=== PATIENT | female | born 1945 | race Caucasian/White ===

== ENCOUNTER 2023-01-11 11:26 | Outpatient (OUT) | payer MEDICARE, SELFPAY ==
--- NOTE | 2023-01-11 11:28 | MM_ITS ---
Patient: AGUEDA DARDEN Exam Date: 01/11/2023 : 1945 Gender:F Ordering : DR Syed Hernandes D.O. Admission #: [id number] Family : Order #: [id number] CLICK HERE TO VIEW EXAM RADIOLOGY REPORT PROCEDURE: MM TOMOSYNTHESIS SCREENING BI COMPARISON: MG MAMM SCREEN 3D ALEXIA CAD, 01/05/2022. MG MAMM DIAGNOSTIC 3D ALEXIA CAD, 01/01/2021. MG MAMM ALEXIA DIAG W CAD, 12/14/2019. MG MAMM ALEXIA SCRN W CAD DIG, 11/21/2013. INDICATIONS: Screening Calculator Name NCI Breast Cancer Risk Assessment Tool 5 Year Breast Cancer Risk n/a% Lifetime Breast Cancer Risk n/a% Personal Breast Cancer Yes, Breast cancer right upper outer quad age 69 Personal Ovarian Cancer No Treatments Lumpectomy, Chemo, Radiation Family Cancers None LOCATION: [facility] BREAST COMPOSITION: Heterogeneously dense,which may obscure small masses. FINDINGS: DIAGNOSTIC CATEGORY 2--BENIGN FINDING: RIGHT BREAST: No significant suspicious finding. Stable clips and surgical changes within posterior upper-outer quadrant and right axilla. No significant change has occurred. LEFT BREAST: No significant suspicious finding. No significant change has occurred. RECOMMENDATIONS: ROUTINE MAMMOGRAM AND CLINICAL EVALUATION IN 12 MONTHS. PLEASE NOTE: A NORMAL MAMMOGRAM DOES NOT EXCLUDE THE POSSIBILITY OF BREAST CANCER. A CLINICALLY SUSPICIOUS PALPABLE LUMP SHOULD BE BIOPSIED. Dictated by: Olayinka Mortensen M.D. on 01/11/2023 at 15:34 Approved by: Olayinka Mortensen M.D. on 01/11/2023 at 15:38
== END 2023-01-11 11:27 | disposition home or self-care (01) ==
LOC: MAMMO 11:26
PROVIDERS: PCP Internal Medicine; Visit Provider Internal Medicine
DX: Z12.31 Encounter for screening mammogram for malignant neoplasm of breast (principal)
CPT/HCPCS: 77063; 77067

== ENCOUNTER 2023-11-23 11:20 | Outpatient (OUT) | payer MEDICARE, SELFPAY ==
--- NOTE | 2023-11-23 | XR_ITS ---
The [address] [address] Patient Name: AGUEDA DARDEN MRN: [id number] date: 1945 Sex: F Assigned Patient Location: Current Patient Location: Accession/Order Number: [id number] Exam Date: 11/23/2023 11:33 Report Date: 11/24/2023 07:31 At the request of: CARLYN MAGALLANES Procedure: XR foot ALEXIA min 3V EXAMINATION: XR foot ALEXIA min 3V HISTORY: BILATERAL FOOT PAIN COMPARISON: No relevant comparison available. FINDINGS: RIGHT FINDINGS: BONES: No acute fracture or dislocation. Mild enthesopathic spurring of the calcaneus at the Achilles and plantar insertions. SOFT TISSUES: Negative. No visible soft tissue swelling. OTHER: Negative. LEFT FINDINGS: BONES: No acute fracture or dislocation. Mild plantar enthesopathic spurring of the calcaneus SOFT TISSUES: Negative. No visible soft tissue swelling. OTHER: Negative. XR/XR foot ALEXIA min 3V IMPRESSION: Mild bilateral calcaneal enthesopathy Electronically authenticated by: GEOVANNY GONZALES Date: 11/24/2023 07:31
--- OUTSIDE RECORDS SUMMARY | 2023-11-23 11:28 | XMS_ITS | CCD ---
Author Organization [facility] CliniSyar Care Team Providers Care Medical Billing Coordinator Name Role Phone Warner Almonte Admitting Unavailable Gage, Warner Attending Unavailable Warner Almonte Referring Unavailable SYED LOPEZ~[id number] UNKNOWN Primary Care Unavailable Warner Almonte Admitting Unavailable Gage, Warner Attending Unavailable Gage, Warner Referring Unavailable SYED LOPEZ~[phone] UNKNOWN Primary Care Unavailable Syed Lopez Unavailable JOHN, DR STEINER Primary Care Unavailable REQUEST, DR MENDES LISTED Attending Unavaila ble REQUEST, DR MENDES LISTED Consulting Unavaila ble REQUEST, DR MENDES LISTED Admitting Unavaila ble BALL, DR STEINER Primary Care Unavailable BALL, DR STEINER Admitting Unavailable BALL, DR STEINER Attending Unavailable BALL, DR STEINER Consulting Unavailable BALL, DR STEINER Primary Care Unavailable BALL, DR STEINER Admitting Unavailable BALL, DR STEINER Attending Unavailable BALL, DR STEINER Consulting Unavailable WEST, DR GEOVANNY Nichole Consulting Unavailable Allergies Allergy Classification Reported Allergen(s) Allergy Type Date of Onset Reaction(s) Facility (1 source) Adhesive agent Drug allergy (disorder) 11-27-2016 [facility] Medications Current Medications Medication Drug Class(es) Dates Sig (Normalized) Sig (Original) amLODIPine 5 mg oral tablet (6 sources) Dihydropyridine Calcium Channel Demar Start: 06-12-2022 take 1 tablet by mouth every twenty-four hours amLODIPine Besylate 5 MG 1 tablet Orally Once a day May, Active traMADol hydrochloride 50 mg oral tablet (5 sources) Opioid Agonist Start: 07-02-2022 take 1 tablet by mouth every twenty-four hours traMADol HCl 50 MG 1 tablet as needed Orally Once a day for 30 days Jun, Active Completed/Discontinued Medications Medication Drug Class(es) Dates Sig (Normalized) Sig (Original) azithromycin 250 mg oral tablet (3 sources) Macrolide Antimicrobial Start: 08-17-2022 Azithromycin 250 MG as directed Orally daily for 5 days Aug, Not-Taking codeine phosphate 2 mg/ml / guaiFENesin 20 mg/ml oral solution (6 sources) Opioid Agonist Start: 06-12-2022 take 10 mL by mouth every six hours as needed for cough guaiFENesin-Codein e 100-10 MG/5ML 10 mL as needed Orally every 6 hours as needed for cough for 7 days May, Not-Taking doxycycline hyclate 100 mg oral capsule (6 sources) Tetracycline-class Drug Start: 06-12-2022 take 1 capsule by mouth twice daily Doxycycline Hyclate 100 MG 1 capsule Orally twice daily for 7 days May, Not-Taking Problems Active Problems Problem Classification Problem Date Documented Da te Episodic/Chronic Acute bronchitis (10 sources) Acute infective bronchitis; Translations: [Acute bronchitis due to other specified organisms] Onset: 03-02-2014 Episodic Cancer of breast (6 sources) Malignant neoplasm of unspecified site of unspecified female breast; Translations: [Malignant neoplasm of upper-outer quadrant of right female breast] Onset: 03-04-2015 10-19-2023 Chronic Cancer of breast (7 sources) History of malignant neoplasm of breast; Translations: [Personal history of malignant neoplasm of breast] Onset: 01-07-2022 Episodic Diabetes mellitus with complications (3 sources) Type 2 diabetes mellitus; Translations: [Type 2 diabetes mellitus with hyperglycemia] Chronic Diabetes mellitus without complication (6 sources) Impaired fasting glucose; Translations: [Other abnormal glucose] Onset: 12-07-2014 10-19-2023 Episodic Disorders of lipid metabolism (6 sources) Hyperlipidemia; Translations: [Hyperlipidemia, unspecified] Onset: 11-27-2014 10-19-2023 Chronic Essential hypertension (17 sources) Essential hypertension; Translations: [Essential (primary) hypertension] Onset: 07-08-2022 Chronic Malaise and fatigue (2 sources) Other fatigue; Translations: [OTHER FATIGUE] Onset: 07-12-2022 Episodic Menopausal disorders (2 sources) Menopausal and female climacteric states; Translations: [Menopause present] Onset: 11-09-2013 Chronic Other hereditary and degenerative nervous system conditions (1 source) Essential tremor; Translations: [Essential tremor] Chronic Other hereditary and degenerative nervous system conditions (2 sources) Essential tremor; Translations: [Essential tremor] 10-21-2023 Chronic Other injuries and conditions due to external causes (1 source) History of falling; Translations: [History of falling] Episodic Other injuries and conditions due to external causes (1 source) History of fall; Translations: [History of falling] Episodic Other nutritional; endocrine; and metabolic disorders (7 sources) Body mass index 30+ - obesity; Translations: [Obesity, unspecified] Chronic Other nutritional; endocrine; and metabolic disorders (2 sources) Obesity, unspecified; Translations: [Obesity, unspecified] Chronic Other nutritional; endocrine; and metabolic disorders (2 sources) Simple obesity ; Translations: [Other obesity due to excess calories] Onset: 08-27-2015 Chronic Other nutritional; endocrine; and metabolic disorders (1 source) Morbid (severe) obesity due to excess calories; Translations: [Morbid (severe) obesity due to excess calories] Onset: 05-28-2017 Chronic Other nutritional; endocrine; and metabolic disorders (1 source) Other obesity due to excess calories Chronic Other nutritional; endocrine; and metabolic disorders (1 source) Body mass index (BMI) 31.0-31.9, adult Chronic Other nutritional; endocrine; and metabolic disorders (1 source) Obesity; Translations: [Obesity, unspecified] Chronic Other nutritional; endocrine; and metabolic disorders (1 source) Morbid obesity; Translations: [Morbid (severe) obesity due to excess calories] Onset: 05-28-2017 Chronic Other skin disorders (5 sources) Papule of skin; Translations: [Other skin changes] Episodic Other skin disorders (1 source) Other skin changes Episodic Other upper respiratory disease (2 sources) Allergic rhinitis; Translations: [Allergic rhinitis, unspecified] Onset: 08-08-2013 Chronic Other upper respiratory infections (6 sources) Acute sinusitis, unspecified; Translations: [Acute maxillary sinusitis] Onset: 03-04-2015 Episodic Spondylosis; intervertebral disc disorders; other back problems (7 sources) Lumbar spondylosis; Translations: [Spondylosis without myelopathy or radiculopathy, lumbar region] Chronic Sprains and strains (2 sources) Strain of unspecified muscle(s) and tendon(s) at lower leg level, right leg, initial encounter; Translations: [Strain of muscle and/or tendon of lower leg] Episodic Urinary tract infections (2 sources) Urinary tract infectious disease; Translations: [Urinary tract infection, site not specified] Episodic Past or Other Problems Problem Classification Problem Date Documented Da te Episodic/Chronic Gastrointestinal hemorrhage (2 sources) Melena; Translations: [Melena] Onset: 01-16-2016 Episodic Genitourinary symptoms and ill-defined conditions (2 sources) Dysuria; Translations: [Dysuria] Onset: 02-20-2014 Episodic Other circulatory disease (2 sources) Elevated blood-pressure reading without diagnosis of hypertension; Translations: [Elevated blood-pressure reading, without diagnosis of hypertension] Onset: 03-02-2014 Episodic Other connective tissue disease (2 sources) Ganglion cyst; Translations: [Ganglion, unspecified site] Onset: 2013 Episodic Other gastrointestinal disorders (2 sources) Constipation; Translations: [Constipation, unspecified] Onset: 01-15-2016 Episodic Other lower respiratory disease (2 sources) Cough; Translations: [Cough, unspecified] Onset: 08-08-2013 Episodic Other non-traumatic joint disorders (2 sources) Arthralgia of the lower leg; Translations: [Pain in left knee] Onset: 2013 Episodic Other screening for suspected conditions (not mental disorders or infectious disease) (8 sources) Encounter for screening mammogram for malignant neoplasm of breast; Translations: [Encounter for screening for malignant neoplasm of colon] Onset: 11-28-2014 Episodic Spondylosis; intervertebral disc disorders; other back problems (2 sources) Dorsalgia, unspecified; Translations: [Backache] Onset: 07-16-2014 Episodic Viral infection (2 sources) COVID-19; Translations: [Disease caused by 2019-nCoV] Resolved: 11-05-2020 Results Test Name Value Interpretation Reference Range Facility GLYCOHEMOGLOBIN A1Con 2022 ADA RECOMMENDATION SEE BELOW Normal [facility] Comment on above: Result Comment: ADA RECOMMENDED LIMIT 4.0 - 6.0 ADA THERAPEUTIC TARGET < 7.0 ACTION SUGGESTED > 7.0 Performed By: #### D ATA1C #### [facility] [address] [place] [address] Dr. Joshua Arshad Glucose [Mass/Vol] 151 mg/dL Normal [facility] Comment on above: Performed By: #### D ATA1C #### [facility] [address] [address] [address] Joshua Arshad HbA1c (Bld) [Mass fraction] 6.9 % Critically high 4.5-6.2 [facility] Comment on above: Performed By: #### D ATA1C #### [facility] [address] [place] [address] Dr. Joshua Arshad CBC AUTO DIFFon 07-08-2022 BASO # 0.0 103/ul Normal 0.0-0.1 [facility] Comment on above: Performed By: #### C BC #### [facility] [address] [place] [address] Dr. Joshua Arshad Basophils/100 WBC (Bld) 0.6 % Normal 0.2-2.0 [facility] Comment on above: Performed By: #### C BC #### [facility] [address] [place] [address] Dr. Joshua Arshad EO # 0.1 103/ul Normal 0.0-0.7 [facility] Comment on above: Performed By: #### C BC #### [facility] [address] [place] [address] Dr. Joshua Arshad Eosinophils/100 WBC (Bld) 2.3 % Normal 0.9-7.0 [facility] Comment on above: Performed By: #### C BC #### [facility] [address] [place] [address] Dr. Joshua Arshad Erythrocyte distribution width (RBC) [Ratio] 12.8 % Normal 11.0-15.0 [facility] Comment on above: Performed By: #### C BC #### [facility] [address] [place] [address] Dr. Joshua Arshad Hematocrit (Bld) [Volume fraction] 43.3 % Normal 36.0-48.0 [facility] Comment on above: Performed By: #### C BC #### [facility] [address] [place] [address] Dr. Joshua Arshad Hemoglobin (Bld) [Mass/Vol] 14.0 g/dL Normal 12.0-16.0 [facility] Comment on above: Performed By: #### C BC #### [facility] [address] [place] [address] Dr. Joshua Arshad IG # 0.01 10e3/ul Normal 0.00-0.03 [facility] Comment on above: Performed By: #### C BC #### [facility] [address] [place] [address] Dr. Joshua Arshad IG % 0.2 % Normal 0.0-0.5 [facility] Comment on above: Performed By: #### C BC #### [facility] [address] [place] [address] Dr. Joshua Arshad LYMPH # 1.6 103/ul Normal 1.2-3.8 [facility] Comment on above: Performed By: #### C BC #### [facility] [address] [place] [address] Dr. Joshua Arshad Lymphocytes/100 WBC (Bld) 34.2 % Normal 20.5-60.0 [facility] Comment on above: Performed By: #### C BC #### [facility] [address] [place] [address] Dr. Joshua Arshad MANUAL DIFF REQ NO Normal [facility] Comment on above: Performed By: #### C BC #### [facility] [address] [place] [address] Dr. Joshua Arshad MCH (RBC) [Entitic mass] 29.5 pg Normal 26.7-34.0 [facility] Comment on above: Performed By: #### C BC #### [facility] [address] [place] [address] Dr. Joshua Arshad MCHC (RBC) [Mass/Vol] 32.3 g/dL Normal 29.9-35.2 [facility] Comment on above: Performed By: #### C BC #### [facility] [address] [place] [address] Dr. Joshua Arshad MCV (RBC) [Entitic vol] 91.4 fL Normal 81.0-99.0 [facility] Comment on above: Performed By: #### C BC #### [facility] [address] [place] [address] Dr. Joshua Arshad MONO # 0.3 103/ul Normal 0.3-0.8 [facility] Comment on above: Performed By: #### C BC #### [facility] [address] [place] [address] Dr. Joshua Arshad Monocytes/100 WBC (Bld) 6.3 % Normal 1.7-12.0 [facility] Comment on above: Performed By: #### C BC #### [facility] [address] [place] [address] Dr. Joshua Arshad NEUT # 2.7 103/ul Normal 1.4-6.5 [facility] Comment on above: Performed By: #### C BC #### [facility] [address] [place] [address] Dr. Joshua Arshad Neutrophils/100 WBC (Bld) 56.4 % Normal 43.0-75.0 [facility] Comment on above: Performed By: #### C BC #### [facility] [address] [place] [address] Dr. Joshua Arshad Platelet mean volume (Bld) [Entitic vol] 10.8 fL Normal 9.5-13.5 [facility] Comment on above: Performed By: #### C BC #### [facility] [address] [place] [address] Dr. Joshua Arshad PLT 209 103/ul Normal 150-450 [facility] Comment on above: Performed By: #### C BC #### [facility] [address] [place] [address] Dr. Joshua Arshad RBC 4.74 106/ul Normal 4.20-5.40 [facility] Comment on above: Performed By: #### C BC #### [facility] [address] [place] [address] Dr. Joshua Arshad WBC 4.7 103/ul Normal 4.0-11.0 [facility] Comment on above: Performed By: #### C BC #### [facility] [address] [place] [address] Dr. Joshua Arshad PROF CHEM 8 (BAS METB)on Anion gap [Moles/Vol] 14.0 mmol/L Normal [facility] Comment on above: Performed By: #### T SH, BMP #### [facility] [address] [place] [address] Dr. Joshua Arshad Calcium [Mass/Vol] 9.5 mg/dL Normal 8.5-10.1 [facility] Comment on above: Performed By: #### T SH, BMP #### [facility] [address] [place] [address] Dr. Joshua Arshad Chloride [Moles/Vol] 103 mmol/L Normal 98-107 [facility] Comment on above: Performed By: #### T SH, BMP #### [facility] [address] [place] [address] Dr. Joshua Arshad CO2 [Moles/Vol] 27.1 mmol/L Normal 21.0-32.0 [facility] Comment on above: Performed By: #### T SH, BMP #### [facility] [address] [place] [address] Dr. Joshua Arshad Creatinine [Mass/Vol] 0.75 mg/dL Normal 0.55-1.02 [facility] Comment on above: Performed By: #### T SH, BMP #### [facility] [address] [place] [address] Dr. Joshua Arshad EGFR-AF GREEK >60 Normal >=60 [facility] Comment on above: Performed By: #### T SH, BMP #### [facility] [address] [place] [address] Dr. Joshua Arshad EGFR-NON AF GREEK >60 Normal >=60 [facility] Comment on above: Performed By: #### T SH, BMP #### [facility] [address] [place] [address] Dr. Joshua Arshad Glucose [Mass/Vol] 134 mg/dL Critically high 74-106 [facility] Comment on above: Performed By: #### T SH, BMP #### [facility] [address] [place] [address] Dr. Joshua Arshad Potassium [Moles/Vol] 4.1 mmol/L Normal 3.5-5.1 [facility] Comment on above: Performed By: #### T SH, BMP #### [facility] [address] [address] [address] Joshua Arshad Sodium [Moles/Vol] 140 mmol/L Normal 136-145 [facility] Comment on above: Performed By: #### T SH, BMP #### [facility] [address] [address] [address] Joshua Arshad Urea nitrogen [Mass/Vol] 10.0 mg/dL Normal 7.0-18.0 [facility] Comment on above: Performed By: #### T SH, BMP #### [facility] [address] [address] [address] Joshua Arshad Urea nitrogen/Creatinine [Mass ratio] 13.3 mg/mg Normal [facility] Comment on above: Performed By: #### T SH, BMP #### [facility] [address] [address] [address] Joshua Arshad TSHon 07-08-2022 TSH 1.694 uIU/mL Normal 0.358-3.740 [facility] Comment on above: Performed By: #### T SH, BMP #### [facility] [address] [place] [address] Dr. Joshua Arshad MG MAMM SCREEN 3D ALEXIA CADon 01-05-2022 MG MAMM SCREEN 3D ALEXIA CAD Patient: AGUEDA REYNA Exam Date: 01/05/2022 : 1945 Gender:F Ordering : DR SYED LOPEZ D.O. Admission #: [id number] Family : Order #: [id number] CLICK HERE TO VIEW EXAM RADIOLOGY REPORT PROCEDURE: MAMMOGRAM SCREENING 3D BILATERAL CAD COMPARISON: MG MAMM ALEXIA DIAG W CAD, 12/14/2019. MG MAMM DIAGNOSTIC 3D ALEXIA CAD, 01/01/2021. INDICATIONS: Screening mammography Calculator Name NCI Breast Cancer Risk Assessment Tool 5 Year Breast Cancer Risk n/a% Lifetime Breast Cancer Risk n/a% Personal Breast Cancer Yes, Breast cancer right upper outer quad age 69 Personal Ovarian Cancer No Treatments Lumpectomy, Chemo, Radiation Family Cancers None LOCATION: [facility] BREAST COMPOSITION: Heterogeneously dense,which may obscure small masses. FINDINGS: DIAGNOSTIC CATEGORY 2--BENIGN FINDING. NO CHANGE FROM COMPARISON. Scattered benign-appearing calcifications are present. Scattered benign-appearing lymph nodes are present. RIGHT BREAST: No significant suspicious finding. Asymmetrically small, stable. Micro clip markers in area of architectural distortion upper outer quadrant, unchanged, to a linear scar marker. Right axillary surgical clips and scar marker pleural LEFT BREAST: No significant suspicious finding. RECOMMENDATIONS: ROUTINE MAMMOGRAM AND CLINICAL EVALUATION IN 12 MONTHS. PLEASE NOTE: A NORMAL MAMMOGRAM DOES NOT EXCLUDE THE POSSIBILITY OF BREAST CANCER. A CLINICALLY SUSPICIOUS PALPABLE LUMP SHOULD BE BIOPSIED. Dictated by: Geovanny Astorga MD on 01/05/2022 at 14:29 Approved by: Geovanny Astorga MD on 01/05/2022 at 14:31 Normal [facility] Coding Summary.on 05-12-2018 Coding Summary. 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 However, the narrative phrase printed from the coding software may appear abbreviated, or result in slightly different terminology. Coded By: Barbara Delaney Date Saved: 05/12/2018 10:56 am Normal [facility] Coding Summary.on 05-06-2018 Coding Summary. CODING DATE: 05/06/2018 FINAL [facility] STATUS: Home (Routine DC) PAYOR: Medicare APC DESCRIPTION 5481 Laser Eye Procedures ADMIT DX: REASON FOR VISIT DX: H26.491 Other secondary cataract, right eye FINAL DX: PRINCIPAL: H26.491 Other secondary cataract, right eye SECONDARY: PYMT PROC APC STAT DESCRIPTION DOCTOR NAME DATE 80216 5481 T Discission of secondary Warner Almonte DO 05/03/2018 membranous cataract (opacified posterior lens capsule and/or anterior hyaloid); laser surgery (eg, YAG laser) (1 or more stages) RT Right side (used to identify procedures performed on the right side of the body) NOTE: The code number assigned matches the documented diagnosis and / or procedure in the patient's chart. However, the narrative phrase printed from the coding software may appear abbreviated, or result in slightly different terminology. Coded By: Barbara Delaney Date Saved: 05/06/2018 08:06 am Normal [facility] Vital Signs Date Time Vital Sign Value Performing Clinician Facility 10-21-2023 11:48-0400 Body height 165.1 cm [facility] 10-21-2023 11:48-0400 Body mass index (BMI) [Ratio] 31.9 kg/m2 [facility] 10-21-2023 11:48-0400 Body weight 87.08 kg [facility] 10-21-2023 11:48-0400 Diastolic blood pressure 85 mm[Hg] [facility] 10-21-2023 11:48-0400 Heart rate 61 /min [facility] 10-21-2023 11:48-0400 Respiratory rate 16 /min [facility] 10-21-2023 11:48-0400 SaO2% (BldA) [Mass fraction] 97 % [facility] 10-21-2023 11:48-0400 Systolic blood pressure 152 mm[Hg] [facility] 10-19-2022 13:30-0400 Body height 165.1 cm Syed [employer] Other [facility] [employer] Other 10-19-2022 13:30-0400 Body mass index (BMI) [Ratio] 31.21 kg/m2 Syed Ball Other [facility] [employer] Other 10-19-2022 13:30-0400 Body weight 85.1 kg Syed Ball Other [facility] [employer] Other 10-19-2022 13:30-0400 Diastolic blood pressure 88 mm[Hg] Syed Ball Other [employer] Other 10-19-2022 13:30-0400 Respiratory rate 12 /min Syed Ball Other [employer] Other 10-19-2022 13:30-0400 Systolic blood pressure 139 mm[Hg] Syed Ball Other [employer] Other 07-02-2022 10:15-0400 Body height 165.1 cm Syed Ball Other [employer] Other 07-02-2022 10:15-0400 Body mass index (BMI) [Ratio] 34.78 kg/m2 Syed Ball Other [employer] Other 07-02-2022 10:15-0400 Body weight 94.8 kg Syed Ball Other [employer] Other 07-02-2022 10:15-0400 Diastolic blood pressure 80 mm[Hg] Syed Ball Other [employer] Other 07-02-2022 10:15-0400 Respiratory rate 16 /min Syed Ball Other [employer] Other 07-02-2022 10:15-0400 Systolic blood pressure 112 mm[Hg] Syed Ball Other [employer] Other Encounters Encounter Date Encounter Type Care Provider Facility Start: 10-21-2023 End: 10-21-2023 ambulatory [facility] Work Phone: Start: 10-21-2023 End: 10-21-2023 Patient encounter procedure [facility] Work Phone: Start: 10-19-2022 End: 10-19-2022 ambulatory Syed Lopez Other [employer] Other Start: 10-19-2022 Patient encounter procedure Syed Lopez [facility] Start: 10-19-2022 Telephone encounter Syed Lopez [facility] Start: 08-17-2022 End: 08-17-2022 ambulatory Syed Lopez Other [employer] Other Start: 08-17-2022 Office outpatient vi sit 15 minutes Syed Lopez [facility] Start: 07-15-2022 End: 07-16-[address] SYED LOPEZ Facility:[facility] Start: 07-09-2022 End: 07-09-2022 ambulatory Syed Lopez Other [employer] Other Start: 07-09-2022 Telephone encounter Syed Lopez [facility] Start: 07-08-2022 End: 07-09-[address] SYED LOPEZ Facility:[facility] Start: 07-02-2022 End: 07-02-2022 ambulatory Syed Lopez Other [employer] Other Start: 07-02-2022 Office outpatient vi sit 15 minutes Syed Lopez [facility] Start: 06-12-2022 End: 06-12-2022 ambulatory Syed Lopez Other [employer] Other Start: 06-12-2022 Office outpatient vi sit 15 minutes Seyd Lopez [facility] Start: 01-05-2022 End: 01-06-[address] SYED LOPEZ Facility:[facility] Start: 11-11-2021 Adult health examination Syed Lopez Other [employer] Other Start: 05-10-2018 End: 05-10-2018 Patient encounter procedure Warner Almonte Facility:[facility] Start: 05-03-2018 End: 05-03-2018 Patient encounter procedure Warner Almonte Facility:[facility] Procedures Date Procedure Procedure Detail Performing Clinician Start: 11-02-2016 Screening for malign ant neoplasm of colon Syed Lopez Other Depression screening Patsy Lopez Other Plan of Treatment Date Care Activity Detail Author Comprehensive metabo lic 2000 panel - Serum or Plasma [facility] enter [facility] Immunizations Immunization Date Immunization Notes Care Provider Fa jg 12-02-2017 influenza virus vaccine, split virus (incl. purified surface antigen) Syed Lopez Other [facility] [employer] Other 12-02-2017 influenza virus vaccine, unspecified formulation [facility] 11-02-2016 pneumococcal conjuga te vaccine, 13 valent Syed Lopez Other [facility] 12-25-2015 influenza virus vaccine, split virus (incl. purified surface antigen) Syed Lopez Other [facility] [employer] Other 12-25-2015 influenza virus vaccine, unspecified formulation [facility] 02-11-2001 pneumococcal polysaccharide vaccine, 23 valent Syed Lopez Other [facility] Payers Date Payer Category Payer Self-pay 1959 Unknown [id number] 1945 Unknown [id number] 2.16.84 [id number] 1945 Unknown [id number] 2.16.84 [id number] 1945 Unknown [id number] 2.16.84 [id number] 1945 Unknown [id number] 2.16.84 [id number] Medicare Medicare [id number] Unknown [id number] 2.16.84 [id number] Social History Date Type Detail Facility Sex Assigned At [facility] [employer] Other Start: 1945 Sex Assigned At Female F [facility] Evaluation note 10-19-2022 Note Date & Type Note Facility 10-19-2022 Evaluation note Encounter Date Diagnosis Assessment Notes Oct, Medicare annual wellness visit, subsequent (ICD-10 - Z00.00) Personalized health advice was given to the beneficiary including a written plan for screenings discussed and provided. Advanced care planning reviewed and/or information given as requested. Additional counseling was provided here today in regards to, [ ]. The above visit was performed by [ ], under direct supervision of [ ]. Document reviewed and amended by provider signed below. Healthy diet and exercise. Reviewed age-appropriate preventive testing recommended. Oct, Type 2 diabetes mellitus with hyperglycemia, without long-term current use of insulin (ICD-10 - E11.65) This patient is following a comprehensive diabetic treatment plan. They are checking their feet daily for calluses and nonhealing ulcers. They are being seen for yearly dilated eye examinations. Goals: SBP less than 130, LDL less than 100, FBS less than 140, AC and A1C less than 7%. They are checking their BS daily, will which are reviewed at the office visit. Continue regular routine monitoring of A1C,] Microalbumin, Dilated eye exam and Foot exam Completed diabetic education Has lost weight and is following a heatlhy, low carb diet Oct, Primary hypertension (ICD-10 - I10) This patient is instructed to consume a healthy, low-fat, low-salt diet. They are also encouraged to continue exercise to achieve/maintain a normal BMI. Oct, Other obesity due to excess calories (ICD-10 - E66.09) This patient has been instructed on a low-fat, high-fiber diet. They are instructed to reduce calories, portion sizes and snacks. It is recommended that they exercise for 30 minutes, 3-5 times weekly. Goal is BMI < 30 Oct, Body mass index [BMI] 31.0-31.9, adult (ICD-10 - Z68.31) Oct, Screening mammogram for high-risk patient (ICD-10 - Z12.31) Hx of breast cancer No s/s recurrence. f/u [employer] Other Evaluation note 08-17-2022 Note Date & Type Note Facility 08-17-2022 Evaluation note Encounter Date Diagnosis Assessment Notes Aug, Acute bronchitis due to other specified organisms (ICD-10 - J20.8) Instructed to use Robitussin or Mucinex for cough, saline or Flonase NS for congestion, Tylenol for pain and fever. [employer] Other Evaluation note 07-02-2022 Note Date & Type Note Facility 07-02-2022 Evaluation note Encounter Date Diagnosis Assessment Notes Jun, Primary hypertension (ICD-10 - I10) This patient is instructed to consume a healthy, low-fat, low-salt diet. They are also encouraged to continue exercise to achieve/mainta in a normal BMI. Jun, Obesity (BMI 30-39.9) (ICD-10 - E66.9) This patient has been instructed on a low-fat, high-fiber diet. They are instructed to reduce calories, portion sizes and snacks. It is recommended that they exercise for 30 minutes, 3-5 times weekly. Jun, Papule of skin (ICD-10 - R23.8) Cryo/thaw x 3 treatment Removed due to frequent episodes of bleeding from this inflamed, irritated papule Jun, Hx of breast cancer (ICD-10 - Z85.3) Jun, Fatigue, unspecified type (ICD-10 - R53.83) Jun, Lumbar spondylosis (ICD-10 - M47.816) [employer] Other Evaluation note 06-12-2022 Note Date & Type Note Facility 06-12-2022 Evaluation note Encounter Date Diagnosis Assessment Notes May, Acute bronchitis due to other specified organisms (ICD-10 - J20.8) Instructed to use Robitussin or Mucinex for cough, saline or Flonase NS for congestion, Tylenol for pain and fever. May, Primary hypertension (ICD-10 - I10) This patient is instructed to consume a healthy, low-fat, low-salt diet. They are also encouraged to continue exercise to achieve/maintain a normal BMI. Avoid decongestants [employer] Other Evaluation note Note Date & Type Note Facility Evaluation note No Information [employer] Other Evaluation note Note Date & Type Note Facility Evaluation note Diagnosis Onset Date Breast cancer acute Hypercholesterolemia acute Hypertension acute IFG (impaired fasting glucose) acute Medicare annual wellness visit, subsequent noneactive [facility] Work Phone: History general Narrative - Reported Note Date & Type Note Facility History general Narrative - Reported Type Medical History essential tremor Medical History hyperlipidemia Medical History hypertension Medical History impaired fasting glucose Medical History malignant neoplasm of UOQ of rig ht breast Medical History obesity Surgical History colonoscopy 11/2016 Surgical History right lumpectomy w/ LN dissecti on 12/2014 [employer] Other History general Narrative - Reported Note Date & Type Note Facility History general Narrative - Reported Type Medical History essential tremor Medical History hyperlipidemia Medical History hypertension Medical History impaired fasting glucose Medical History malignant neoplasm o f UOQ of right breast Medical History obesity Surgical History colonoscopy 11/2016 Surgical History right lumpectomy w/ LN dissecti on 12/2014 Hospitalization History SEE SURGICAL HX [employer] Other Summary Purpose Family History Relationship Condition Age at Onset Recorded Date/T laura father Heart disease Unknown Diabetes mellitus Unknown Advance Directives Advance Directive Response Recorded Date/ Time Advance Directives No October 20 11:38am Chief Complaint and Reason for Visit Chief Complaint Rt foot pain Reason for Visit Breast cancer Hypercholesterolemia Hypertension IFG (impaired fasting glucose) Medicare annual wellness visit, subsequent Additional Source Comments INFORMATION SOURCE (unrecogn ized section and content) DATE CREATED AUTHOR 07/18/2018 [facility] DATE CREATED AUTHOR AUTHOR'S ORGANIZ ATION 07/16/2022 [facility] REASON FOR VISIT (unrecogniz ed section and content) Sinuses/Congestion [phone] on Chest[facility] resultsSore [phone] work needed Care Teams (unrecognized sec tion and content) Team Status: Active Member Role Status Dates Syed Lopez DO Primary Care Provider Active Team Status: Inactive Member Role Status Dates Syed Lopez DO Primary Care Provide r, Attending Provider Active Start: October 21, 2023 End: October 21, 2023 Goals (unrecognized section and content) Goals may be documented in a n alternate section FOR RECORDS PERTAINING TO PATIENTS WHO ARE OR HAVE BEEN ENROLLED IN A CHEMICAL DEPENDENCY/SUBSTANCEABUSE PROGRAM, SOME INFORMATION MAY BE OMITTED. This clinical summary was aggregated from multiple sources. Caution should be exercised in using it in the provision of clinical care. This summary normalizes information from multiple sources, and as a consequence, information in this document may materially change the coding, format and clinical context of patient data. In addition, data may be omitted in some cases. CLINICAL DECISIONS SHOULD BE BASED ON THE PRIMARY CLINICAL RECORDS. [facility] provides no warranty or guarantee of the accuracy or completeness of information in this document.
== END 2023-11-23 11:21 | disposition home or self-care (01) ==
LOC: EC 11:20
PROVIDERS: PCP Internal Medicine; Visit Provider Podiatrist Foot & Ankle Surgery
DX: M79.672 Pain in left foot (principal); M79.671 Pain in right foot; M77.32 Calcaneal spur, left foot; M77.31 Calcaneal spur, right foot
CPT/HCPCS: 73630

== ENCOUNTER 2024-01-13 11:15 | Outpatient (OUT) | payer MEDICARE, SELFPAY ==
[2024-01-13 11:44] LABS: Basophils Percent Auto 0.6 % (0.2-2.0); Eosinophils Absolute Auto 0.1 10^3/uL (0.0-0.7); Eosinophils Percent Auto 1.5 % (0.9-7.0); Hematocrit 41.7 % (36.0-48.0); Hemoglobin 13.7 g/dL (12.0-16.0); Immature Granulocytes Abs Auto 0.01 10^3/uL (0.00-0.03); Immature Granulocytes Pct Auto 0.2 % (0.0-0.5); Lymphocytes Absolute Auto 1.5 10^3/uL (1.2-3.8); Lymphocytes Percent Auto 26.7 % (20.5-60.0); Mean Corpuscular HGB Conc 32.9 g/dL (29.9-35.2); Mean Corpuscular Hemoglobin 30.5 pg (26.7-34.0); Mean Corpuscular Volume 92.9 fL (81.0-99.0); Mean Platelet Volume 10.1 fL (9.5-13.5); Monocytes Absolute Auto 0.3 10^3/uL (0.3-0.8); Monocytes Percent Auto 5.3 % (1.7-12.0); Neutrophils Absolute Auto 3.6 10^3/uL (1.4-6.5); Neutrophils Percent Auto 65.7 % (43.0-75.0); Platelet Count 259 10^3/uL (150-450); Red Blood Count 4.49 10^6/uL (4.20-5.40); Red Cell Distribution Width 12.3 % (11.0-15.0); White Blood Count 5.4 10^3/uL (4.0-11.0)
[2024-01-13 11:58] LABS: Alanine Aminotransferase 18 U/L (14-59); Albumin Level 3.4 g/dL (3.4-5.0); Alkaline Phosphatase 70 U/L (46-116); Anion Gap 11.7; Aspartate Amino Transferase 15 U/L (15-37); BUN Creatinine Ratio 17.7; Bilirubin Total 0.4 mg/dL (0.2-1.0); Calcium 8.9 mg/dL (8.5-10.1); Carbon Dioxide 29.4 mmol/L (21.0-32.0); Chloride 108 mmol/L (98-107); Cholesterol 155 mg/dL (<=200); Estimated GFR (African America >60 (>=60 mL/min/1.73m^2); Estimated GFR (Non-African Ame >60 (>=60 mL/min/1.73m^2); Globulin 3.4 g/dL; Glucose 146 mg/dL (74-106); HDL Cholesterol 76 mg/dL (40-60); Potassium 4.1 mmol/L (3.5-5.1); Sodium 145 mmol/L (136-145); Total Protein 6.8 g/dL (6.4-8.2); Triglycerides 93 mg/dL (<=150); VLDL CHOLESTEROL 18.6 mg/dL
[2024-01-13 12:10] LABS: Estimated Average Glucose 134 mg/dL; Glycohemoglobin A1C 6.3 % (4.5-6.2)
== END 2024-01-13 11:16 | disposition home or self-care (01) ==
LOC: LAB 11:16
PROVIDERS: PCP Internal Medicine; Visit Provider Internal Medicine
DX: I10 Essential (primary) hypertension (principal); E78.00 Pure hypercholesterolemia, unspecified; R73.01 Impaired fasting glucose
CPT/HCPCS: 36415; 80053; 80061; 83036; 85025

== ENCOUNTER 2024-01-13 13:26 | Outpatient (OUT) | payer MEDICARE, SELFPAY ==
--- NOTE | 2024-01-13 13:29 | MM_ITS ---
Patient Name: AGUEDA DARDEN MR#: [id number] : 1945 Exam Date: 01/13/2024 Ordering Doctor: DR Syed Hernandes D.O. RADIOLOGY REPORT PROCEDURE: MM TOMOSYNTHESIS SCREENING BI COMPARISON: MG MAMM SCREEN 3D ALEXIA CAD, 01/05/2022. MM TOMOSYNTHESIS SCREENING BI, 01/11/2023. INDICATIONS: Screening Calculator Name NCI Breast Cancer Risk Assessment Tool 5 Year Breast Cancer Risk n/a% Lifetime Breast Cancer Risk n/a% Personal Breast Cancer Yes, Breast cancer right upper outer quad age 69 Personal Ovarian Cancer No Treatments Lumpectomy, Chemo, Radiation Family Cancers None LOCATION: [facility] BREAST COMPOSITION: The breasts are heterogeneously dense,which may obscure small masses. FINDINGS: DIAGNOSTIC CATEGORY 2--BENIGN FINDING. NO CHANGE FROM COMPARISON. Scattered benign-appearing calcifications are present. Scattered benign-appearing lymph nodes are present. RIGHT BREAST: No significant suspicious finding. Asymmetrically small. Multiple surgical clips and coarse calcifications upper outer quadrant, stable. Axillary surgical clips, stable LEFT BREAST: No significant suspicious finding. RECOMMENDATIONS: ROUTINE MAMMOGRAM AND CLINICAL EVALUATION IN 12 MONTHS. PLEASE NOTE: A NORMAL MAMMOGRAM DOES NOT EXCLUDE THE POSSIBILITY OF BREAST CANCER. A CLINICALLY SUSPICIOUS PALPABLE LUMP SHOULD BE BIOPSIED. Dictated by: Jamal Astorga MD on 01/13/2024 at 15:34 Approved by: Jamal Astorga MD on 01/13/2024 at 15:35
--- OUTSIDE RECORDS SUMMARY | 2024-01-13 13:46 | XMS_ITS | CCD ---
Author Organization [facility] Care Team Providers Care [employer] Custodian Name Role Phone Warner Almonte Admitting Unavailable Warner Almonte Attending Unavailable aWrner Almonte Referring Unavailable SYED LOPEZ~[id number] UNKNOWN Primary Care Unavailable Warner Almonte Admitting Unavailable Gage, Warner Attending Unavailable Warner Almonte Referring Unavailable SYED LOPEZ~[id number] UNKNOWN Primary Care Unavailable Syed Lopez Unavailable [...] Adhesive agent Drug allergy (disorder) 11-27-2016 [facility] Medications Current Medications Medication Drug Class(es) Dates Sig (Normalized) Sig (Original) amLODIPine 5 mg oral tablet (6 sources) Dihydropyridine Calcium Channel Demar Start: 06-12-2022 take 1 tablet by mouth every twenty-four hours amLODIPine Besylate 5 MG 1 tablet Orally Once a day May, Active amoxicillin 875 mg / clavulanate 125 mg oral tablet (2 sources) Penicillin-class Antibacterial Start: 01-07-2024 take 1 tablet by mouth twice daily Amoxicillin-Pot Clavulanate Active 1 TAB PO Twice daily 01 01January 07, 2024 12:00am traMADol hydrochloride 50 mg oral tablet (5 [...] organisms] Onset: 03-02-2014 Episodic Cancer of breast (10 sources) Malignant neoplasm of unspecified site of [...] with hyperglycemia] Chronic Diabetes mellitus without complication (10 sources) Impaired fasting glucose; Translations: [Other abnormal glucose] Onset: 12-07-2014 10-19-2023 Episodic Disorders of lipid metabolism (10 sources) Hyperlipidemia; Translations: [Hyperlipidemia, unspecified] Onset: 11-27-2014 10-19-2023 Chronic Essential hypertension (20 sources) Essential hypertension; Translations: [Essential (primary) hypertension] Onset: 07-08-2022 Chronic Malaise and fatigue (2 sources) Other fatigue; Translations: [OTHER FATIGUE] Onset: 07-12-2022 Episodic Menopausal disorders (2 sources) Menopausal and female climacteric states; Translations: [Menopause present] Onset: 11-09-2013 Chronic Other hereditary and degenerative nervous system conditions (1 source) Essential tremor; Translations: [Essential tremor] Chronic Other hereditary and degenerative nervous system conditions (4 sources) Essential tremor; Translations: [Essential tremor] 10-21-2023 [...] (1 source) Other skin changes Episodic Other skin disorders (2 sources) Nodule of subcutaneous tissue of left foot; Translations: [Localized swelling, mass and lump, left lower limb] 10-21-2023 Episodic Other skin disorders (2 sources) Localized swelling, mass and lump, left lower limb; Translations: [Localized superficial swelling, mass, or lump] 10-21-2023 Episodic Other upper respiratory disease (2 sources) Allergic rhinitis; Translations: [Allergic rhinitis, unspecified] Onset: 08-08-2013 Chronic Other upper respiratory infections (2 sources) Maxillary sinusitis; Translations: [Chronic maxillary sinusitis] 01-09-2024 Chronic Other upper respiratory infections (6 sources) Acute sinusitis, unspecified; Translations: [Acute maxillary sinusitis] Onset: 03-04-2015 Episodic Spondylosis; intervertebral disc disorders; other back problems (9 sources) Lumbar spondylosis; Translations: [Spondylosis without myelopathy or radiculopathy, lumbar region] Chronic Sprains and strains (2 sources) Strain of unspecified muscle(s) and tendon(s) at lower leg level, right leg, initial encounter; Translations: [Strain of muscle and/or tendon of lower leg] Episodic Urinary tract infections (2 sources) Urinary tract infectious disease; Translations: [Urinary tract infection, site not specified] Episodic Viral infection (4 sources) Verruca plantaris; Translations: [Plantar wart] 10-21-2023 Episodic Past or Other Problems Problem Classification [...] (2 sources) COVID-19; Translations: [Disease caused by nCoV] Resolved: 11-05-2020 Results Test Name Value Interpretation Reference Range Facility GLYCOHEMOGLOBIN A1Con 2022 ADA RECOMMENDATION SEE BELOW Normal [facility] Comment on above: Result Comment: ADA RECOMMENDED LIMIT 4.0 - 6.0 ADA THERAPEUTIC TARGET < 7.0 ACTION SUGGESTED > 7.0 Performed By: #### D ATA1C #### [facility] [address] [place] [address] Dr. Joshua Arshad Glucose [Mass/Vol] 151 mg/dL Normal [facility] Comment on above: Performed By: #### D ATA1C #### [facility] [address] [place] [address] Dr. Joshua Arshad HbA1c (Bld) [Mass fraction] 6.9 % Critically high 4.5-6.2 [facility] Comment on above: Performed By: #### D ATA1C #### [facility] [address] [place] [address] Dr. Joshua Arshad CBC AUTO DIFFon 07-08-2022 BASO # 0.0 103/ul Normal 0.0-0.1 [facility] Comment on above: Performed By: #### C BC #### [facility] [address] [place] [address] Dr. Joshua Arshad Basophils/100 WBC (Bld) 0.6 % Normal 0.2-2.0 [facility] Comment on above: Performed By: #### C BC #### [facility] [address] [place] [address] Dr. Joshua Arshad EO # 0.1 103/ul Normal 0.0-0.7 [facility] Comment on above: Performed By: #### C BC #### [facility] [address] [place] [address] Dr. Joshua Arshad Eosinophils/100 WBC (Bld) 2.3 % Normal 0.9-7.0 [facility] Comment on above: Performed By: #### C BC #### [facility] [address] [place] [address] Dr. Joshua Arshad Erythrocyte distribution width (RBC) [Ratio] 12.8 % Normal 11.0-15.0 [facility] Comment on above: Performed By: #### C BC #### [facility] [address] [place] [address] Dr. Joshua Arshad Hematocrit (Bld) [Volume fraction] 43.3 % Normal 36.0-48.0 [facility] Comment on above: Performed By: #### C BC #### [facility] [address] [place] [address] Dr. Joshua Arshad Hemoglobin (Bld) [Mass/Vol] 14.0 g/dL Normal 12.0-16.0 [facility] Comment on above: Performed By: #### C BC #### [facility] [address] [place] [address] Dr. Joshua Arshad IG # 0.01 10e3/ul Normal 0.00-0.03 [facility] Comment on above: Performed By: #### C BC #### [facility] [address] [place] [address] Dr. Joshua Arshad IG % 0.2 % Normal 0.0-0.5 [facility] Comment on above: Performed By: #### C BC #### [facility] [address] [place] [address] Dr. Joshua Arshad LYMPH # 1.6 103/ul Normal 1.2-3.8 [facility] Comment on above: Performed By: #### C BC #### [facility] [address] [place] [address] Dr. Joshua Arshad Lymphocytes/100 WBC (Bld) 34.2 % Normal 20.5-60.0 [facility] Comment on above: Performed By: #### C BC #### [facility] [address] [place] [address] Dr. Joshua Arshad MANUAL DIFF REQ NO Normal [facility] Comment on above: Performed By: #### C BC #### [facility] [address] [place] [address] Dr. Joshua Arshad MCH (RBC) [Entitic mass] 29.5 pg Normal 26.7-34.0 [facility] Comment on above: Performed By: #### C BC #### [facility] [address] [place] [address] Dr. Joshua Arshad MCHC (RBC) [Mass/Vol] 32.3 g/dL Normal 29.9-35.2 [facility] Comment on above: Performed By: #### C BC #### [facility] [address] [place] [address] Dr. Joshua Arshad MCV (RBC) [Entitic vol] 91.4 fL Normal 81.0-99.0 [facility] Comment on above: Performed By: #### C BC #### [facility] [address] [place] [address] Dr. Joshua Arshad MONO # 0.3 103/ul Normal 0.3-0.8 [facility] Comment on above: Performed By: #### C BC #### [facility] [address] [place] [address] Dr. Joshua Arshda Monocytes/100 WBC (Bld) 6.3 % Normal 1.7-12.0 [facility] Comment on above: Performed By: #### C BC #### [facility] [address] [place] [address] Dr. Joshua Arshad NEUT # 2.7 103/ul Normal 1.4-6.5 [facility] Comment on above: Performed By: #### C BC #### [facility] [address] [place] [address] Dr. Joshua Arshad Neutrophils/100 WBC (Bld) 56.4 % Normal 43.0-75.0 [facility] Comment on above: Performed By: #### C BC #### [facility] [address] [place] [address] Dr. Joshua Arshad Platelet mean volume (Bld) [Entitic vol] 10.8 fL Normal 9.5-13.5 [facility] Comment on above: Performed By: #### C BC #### [facility] [address] [place] [address] Dr. Joshua Arshad PLT 209 103/ul Normal 150-450 [facility] Comment on above: Performed By: #### C BC #### [facility] [address] [place] [address] Dr. Joshua Arshad RBC 4.74 106/ul Normal 4.20-5.40 [facility] Comment on above: Performed By: #### C BC #### [facility] [address] [place] [address] Dr. Joshua Arshad WBC 4.7 103/ul Normal 4.0-11.0 [facility] Comment on above: Performed By: #### C BC #### [facility] [address] [place] [address] Dr. Joshua Arshad PROF CHEM 8 (BAS METB)on Anion gap [Moles/Vol] 14.0 mmol/L Normal [facility] Comment on above: Performed By: #### T SH, BMP #### [facility] [address] [place] [address] Dr. Joshua Arshad Calcium [Mass/Vol] 9.5 mg/dL Normal 8.5-10.1 [facility] Comment on above: Performed By: #### T SH, BMP #### [facility] [address] [place] [address] Dr. Joshua Arshad Chloride [Moles/Vol] 103 mmol/L Normal 98-107 [facility] Comment on above: Performed By: #### T SH, BMP #### [facility] [address] [place] [address] Dr. Joshua Arshad CO2 [Moles/Vol] 27.1 mmol/L Normal 21.0-32.0 [facility] Comment on above: Performed By: #### T SH, BMP #### [facility] [address] [place] [address] Dr. Joshua Arshad Creatinine [Mass/Vol] 0.75 mg/dL Normal 0.55-1.02 [facility] Comment on above: Performed By: #### T SH, BMP #### [facility] [address] [place] [address] Dr. Joshua Arshad EGFR-AF INDONESIAN >60 Normal >=60 [facility] Comment on above: Performed By: #### T SH, BMP #### [facility] [address] [place] [address] Dr. Joshua Arshad EGFR-NON AF INDONESIAN >60 Normal >=60 [facility] Comment on above: Performed By: #### T SH, BMP #### [facility] [address] [place] [address] Dr. Joshua Arshad Glucose [Mass/Vol] 134 mg/dL Critically high 74-106 [facility] Comment on above: Performed By: #### T SH, BMP #### [facility] [address] [place] [address] Dr. Joshua Arshad Potassium [Moles/Vol] 4.1 mmol/L Normal 3.5-5.1 [facility] Comment on above: Performed By: #### T SH, BMP #### [facility] [address] [place] [address] Dr. Joshua Arshad Sodium [Moles/Vol] 140 mmol/L Normal 136-145 [facility] Comment on above: Performed By: #### T SH, BMP #### [facility] [address] [place] [address] Dr. Joshua Arshad Urea nitrogen [Mass/Vol] 10.0 mg/dL Normal 7.0-18.0 [facility] Comment on above: Performed By: #### T SH, BMP #### [facility] [address] [place] [address] Dr. Joshua Arshad Urea nitrogen/Creatinine [Mass ratio] 13.3 mg/mg Normal [facility] Comment on above: Performed By: #### T SH, BMP #### [facility] [address] [place] [address] Dr. Joshua Arshad TSHon 07-08-2022 TSH 1.694 uIU/mL Normal 0.358-3.740 [facility] Comment on above: Performed By: #### T SH, BMP #### [facility] [address] [place] [address] Dr. Joshua Arshad MG MAMM SCREEN 3D ALEXIA CADon 01-05-2022 MG MAMM SCREEN 3D ALEXIA CAD Patient: AGUEDA REYNA Exam Date: 01/05/2022 : 1945 Gender:F Ordering : DR SYED LOPEZ D.O. Admission #: [id number] Family : Order #: [id number] CLICK HERE TO VIEW EXAM RADIOLOGY REPORT [...] Lumpectomy, Chemo, Radiation Family Cancers None LOCATION: [facility] BREAST COMPOSITION: Heterogeneously dense,which may obscure small [...] Astorga MD on 01/05/2022 at 14:31 Normal [facility] Coding Summary.on 05-12-2018 Coding Summary. 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 CODING DATE: 05/06/2018 FINAL [facility] STATUS: Home (Routine DC) PAYOR: Medicare APC DESCRIPTION 5481 Laser Eye Procedures ADMIT DX: REASON FOR VISIT DX: H26.491 Other secondary cataract, right eye FINAL DX: PRINCIPAL: H26.491 Other secondary cataract, right eye SECONDARY: PYMT PROC APC STAT DESCRIPTION DOCTOR NAME DATE [id number] T Discission of secondary Warner Almonte [...] Barbara Delaney Date Saved: 05/06/2018 08:06 am [facility] Vital Signs Date Time Vital Sign Value Performing Clinician Facility 01-07-2024 11: Body height 165.1 cm [facility] 01-07-2024 11: Body mass index (BMI) [Ratio] 32.1 kg/m2 [facility] 01-07-2024 11: Body temperature 95.9 [degF] [facility] 01-07-2024 11: Body weight 87.71 kg [facility] 01-07-2024 11:040 Diastolic blood pressure 88 mm[Hg] [facility] 01-07-2024 11: Heart rate 67 /min [facility] 01-07-2024 11:21-0400 SaO2% (BldA) [Mass fraction] 96 % [facility] 01-07-2024 11:21-0400 Systolic blood pressure 138 mm[Hg] [facility] 10-21-2023 11:48-0400 Body height 165.1 cm [facility] 10-21-2023 11:48-0400 Body mass index (BMI) [Ratio] 31.9 kg/m2 [facility] 10-21-2023 11:48-0400 Body weight 87.08 kg [facility] 10-21-2023 11:48-0400 Diastolic blood pressure 85 mm[Hg] [facility] 10-21-2023 11:48-0400 Heart rate 61 /min [facility] 10-21-2023 11:48-0400 Respiratory rate 16 /min [facility] 10-21-2023 11:48-0400 SaO2% (BldA) [Mass fraction] 97 % [facility] 10-21-2023 11:48-0400 Systolic blood pressure 152 mm[Hg] [facility] 10-19-2022 13:30-0400 Body height 165.1 cm Syed Ball Other [facility] Other 10-19-2022 13:30-0400 Body mass index (BMI) [Ratio] 31.21 kg/m2 Syed Ball Other [facility] Other 10-19-2022 13:30-0400 Body weight 85.1 kg Syed Ball Other [facility] Other 10-19-2022 13:30-0400 Diastolic blood pressure 88 mm[Hg] Syed Ball Other [facility] Other 10-19-2022 13:30-0400 Respiratory rate 12 /min Syed Ball Other [facility] Other 10-19-2022 13:30-0400 Systolic blood pressure 139 mm[Hg] Syed Ball Other [facility] Other 07-02-2022 10:15-0400 Body height 165.1 cm Syed Ball Other [facility] Other 07-02-2022 10:15-0400 Body mass index (BMI) [Ratio] 34.78 kg/m2 Syed Ball Other [facility] Other 07-02-2022 10:15-0400 Body weight 94.8 kg Syed Ball Other [facility] Other 07-02-2022 10:15-0400 Diastolic blood pressure 80 mm[Hg] Syed Ball Other [facility] Other 07-02-2022 10:15-0400 Respiratory rate 16 /min Syed Ball Other [facility] Other 07-02-2022 10:15-0400 Systolic blood pressure 112 mm[Hg] Syed Ball Other [facility] Other Encounters Encounter Date Encounter Type Care Provider Facility Start: 01-13-2024 End: 01-13-2024 [facility] Work Phone: Start: 01-13-2024 End: 01-13-2024 Patient encounter procedure [facility] Work Phone: Start: 01-07-2024 End: 01-07-2024 ambulatory [facility] Work Phone: Start: 01-07-2024 End: 01-07-2024 Patient encounter procedure [facility] Work Phone: Start: 10-21-2023 End: 10-21-2023 ambulatory [facility] Work Phone: Start: 10-21-2023 End: 10-21-2023 Patient encounter procedure [facility] Work Phone: Start: 10-19-2022 End: 10-19-2022 ambulatory Syed Lopez Other [facility] Other Start: 10-19-2022 Patient encounter procedure Syed Lopez [facility] Start: 10-19-2022 Telephone encounter Syed Lopez [facility] Start: 08-17-2022 End: 08-17-2022 ambulatory Syed Lopez Other [facility] Other Start: 08-17-2022 Office outpatient vi sit 15 minutes Syed Lopez [facility] Start: 07-15-2022 End: 07-16-[address] SYED LOPEZ Facility:[facility] Start: 07-09-2022 End: 07-09-2022 ambulatory Syed Lopez Other [facility] Other Start: 07-09-2022 Telephone encounter Syed John [facility] Start: 07-08-2022 End: 07-09-[address] SYED LOPEZ Facility:[facility] Start: 07-02-2022 End: 07-02-2022 ambulatory Syed Lopez Other [facility] Other Start: 07-02-2022 Office outpatient vi sit 15 minutes Syed John [facility] Start: 06-12-2022 End: 06-12-2022 ambulatory Syed Lopez Other [facility] Other Start: 06-12-2022 Office outpatient vi sit 15 minutes Syed Lopez [facility] Start: 01-05-2022 End: 01-06-[address] SYED LOPEZ Facility:[facility] Start: 11-11-2021 Adult health examination Syed Lopez Other [facility] Other Start: 05-10-2018 End: 05-10-2018 Patient encounter procedure Warner Almonte Facility:[facility] Start: 05-03-2018 End: 05-03-2018 Patient encounter procedure Warner Almonte Facility:[facility] Procedures Date Procedure Procedure Detail Performing Clinician Start: 11-02-2016 Screening for malign ant neoplasm of colon Syed Lopez Other Depression screening Patsy Lopez Other Plan of Treatment Date Care Activity Detail Author Comprehensive metabo lic 2000 panel - Serum or Plasma [facility] Immunizations Immunization Date Immunization Notes Care Provider Fa cility 01-13-2024 influenza, high dose seasonal, preservative-free [facility] 12-02-2017 influenza virus vaccine, split virus (incl. purified surface antigen) Syed Lopez Other [facility] Other 12-02-2017 influenza virus vaccine, unspecified formulation [facility] 11-02-2016 pneumococcal conjuga te vaccine, 13 valent Syed Lopez Other [facility] 12-25-2015 influenza virus vaccine, split virus (incl. purified surface antigen) Syed John Other [facility] Other 12-25-2015 influenza virus vaccine, unspecified formulation [facility] 02-11-2001 pneumococcal polysaccharide vaccine, 23 valent Syed Lopez Other [facility] Payers Date Payer Category Payer Self-pay 1957 Unknown [id number] 1945 Unknown [id number] 2.16.84 [id number] 1945 Unknown [id number] 2.16.84 [id number] 1945 Unknown [id number] 2.16.84 [id number] 1945 Unknown [id number] 2.16.84 [id number] Medicare Medicare [id number] Unknown [id number] 2.16.84 [id number] Social History Date Type Detail Facility Sex Assigned At [facility] Other Start: 1945 Sex Assigned At Female F [facility] Evaluation note 10-19-2022 Note Date & Type [...] of breast cancer No s/s recurrence. f/u [facility]cology [facility] Other Evaluation note 08-17-2022 Note Date & Type Note Facility 08-17-2022 Evaluation note Encounter Date Diagnosis Assessment Notes Aug, Acute bronchitis due to other specified organisms (ICD-10 - J20.8) Instructed to use Robitussin or Mucinex for cough, saline or Flonase NS for congestion, Tylenol for pain and fever. [facility] Other Evaluation note 07-02-2022 Note Date & [...] R53.83) Jun, Lumbar spondylosis (ICD-10 - M47.816) [facility] Other Evaluation note 06-12-2022 Note Date & [...] to achieve/maintain a normal BMI. Avoid decongestants [facility] Other Evaluation note Note Date & Type Note Facility Evaluation note No Information [facility] Other Evaluation note Note Date & Type Note Facility Evaluation note Diagnosis Onset Date Breast cancer acute Hypercholesterolemia acute Hypertension acute IFG (impaired fasting glucose) acute Medicare annual wellness visit, subsequent noneactive [facility] Work Phone: Evaluation note Note Date & Type Note Facility Evaluation note Diagnosis Onset Date Breast cancer acute Hypercholesterolemia acute Hypertension acute IFG (impaired fasting glucose) acute Plantar wart of right foot a cute Subcutaneous nodule of left foot acute Medicare annual wellness visit, subsequent noneactive [facility] Work Phone: Evaluation note Note Date & Type Note Facility Evaluation note Diagnosis Onset Date Breast cancer acute Hypercholesterolemia acute Hypertension acute IFG (impaired fasting glucose) acute Plantar wart of right foot a cute Subcutaneous nodule of left foot acute Medicare annual wellness visit, subsequent noneactive Maxillary sinusitis acute [facility] Work Phone: History general Narrative - Reported Note Date & Type Note Facility History general Narrative - Reported Type Medical History essential tremor Medical History hyperlipidemia Medical History hypertension Medical History impaired fasting glucose Medical History malignant neoplasm of UOQ of rig ht breast Medical History obesity Surgical History colonoscopy 11/2016 Surgical History right lumpectomy w/ LN dissecti on 12/2014 [facility] Other History general Narrative - Reported Note [...] on 12/2014 Hospitalization History SEE SURGICAL HX [facility] Other Summary Purpose Family History Relationship Condition Age at Onset Recorded Date/T laura father Heart disease Unknown Diabetes mellitus Unknown Advance Directives Advance Directive Response Recorded Date/ Time Advance Directives No October 20 024 11:38am Chief Complaint and Reason for Visit Chief Complaint Rt foot pain Reason for Visit Breast cancer Hypercholesterolemia Hypertension IFG (impaired fasting glucose) Medicare annual wellness visit, subsequent Chief Complaint Rt foot pain sinus infection Reason for Visit Breast cancer Hypercholesterolemia Hypertension IFG (impaired fasting glucose) Plantar wart of right foot Subcutaneous nodule of left foot Medicare annual wellness visit, subsequent Chief Complaint Rt foot pain sinus infection flu shot Reason for Visit Breast cancer Hypercholesterolemia Hypertension IFG (impaired fasting glucose) Plantar wart of right foot Subcutaneous nodule of left foot Medicare annual wellness visit, subsequent Maxillary sinusitis Additional Source Comments INFORMATION SOURCE (unrecogn ized section and content) DATE CREATED AUTHOR 07/18/2018 [facility] [employer] [facility] DATE CREATED AUTHOR AUTHOR'S ORGANIZ ATION 07/16/2022 [facility] REASON FOR VISIT (unrecogniz ed section and content) Sinuses/Congestion [phone] [facility] on [facility] resultsSore [id number] work needed Care Teams (unrecognized sec tion and content) Team Status: Active Member Role Status Dates Syed Lopez DO Primary Care Provider Active Team Status: Inactive Member Role Status Dates Syed Lopez DO Primary Care Provide r, Attending Provider Active Start: October 21, 2023 End: October 21, 2023 Team Status: Inactive Member Role Status Dates Syed Lopez DO Primary Care Provider Active Start: January 07, 2024 End: January 07, 2024 Christiane Connor APRN COSMETIC SALES ASSISTANT-C Attending Provider Active Start: January 07, 2024 End: January 07, 2024 Team Status: Inactive Member Role Status Dates Syed Lopez DO Primary Care Provide r, Attending Provider Active Start: January 13, 2024 End: January 13, 2024 Goals (unrecognized section and content) Goals may [...] BE BASED ON THE PRIMARY CLINICAL RECORDS. [employer] [facility]. provides no warranty or guarantee of the accuracy or completeness of information in this document.
== END 2024-01-13 13:27 | disposition home or self-care (01) ==
LOC: MAMMO 13:26
PROVIDERS: PCP Internal Medicine; Visit Provider Internal Medicine
DX: Z12.31 Encounter for screening mammogram for malignant neoplasm of breast (principal); Z85.3 Personal history of malignant neoplasm of breast
CPT/HCPCS: 77063; 77067

== ENCOUNTER 2024-11-09 12:24 | Outpatient (OUT) | payer MEDICARE, SELFPAY ==
--- OUTSIDE RECORDS SUMMARY | 2023-11-23 07:00 | XMS_ITS ---
Author Organization [facility] [place] Address [address] [place] [address] Care Team Providers Care Artistic Associate Name Role Phone None, Unknown or Primary Care Provider Unavailab Jeremy De La Torre [phone] Allergies Allergen (clinical drug ingredient) Drug/Non Drug Allergy documented on EMR Reaction Allergy Type Onset Date Status Tape rash Allergy Active REASON FOR VISIT plantar warts on right foot/ lump in arch of left foot Social History Tobacco Use: Social History Observation Description Date Details (start date - stop date) Never Smoker NA - NA Tobacco Control (Standard) Question Answer Notes Tobacco use: Nonsmoker Problems Problem Type SNOMED Code ICD Code Onset Dates Problem Status W/U Status Risk Notes Problem [id number] Plantar wart (B07.0) Active confirmed Vital Signs Temperature 97.5 degrees Fahrenheit 11/23/19 24 Heart Rate 88 /min 11/23/2023 Height 64 in 11/23/2023 Weight 184 lbs 11/23/2023 BMI 31.58 kg/m2 11/23/2023 Oximetry 99 % 11/23/2023 Encounters Encounter Location Date Provider Diagnosis [facility] (PODIATRY) [address] [place] [address] [place] [address] 11/23/2023 Jeremy Payne Plantar fascial fibromatosis M72.2 ; Plantar wart B07.0 ; Corns and callosities L84 ; Left foot pain M79.672 and Right foot pain M79.671 Assessments Encounter Date Diagnosis (ICD Code) Assessment Notes Treatment Notes Treatment Clinical Notes Section Notes 11/23/2023 Plantar fascial fibromatosis (ICD-10 - M72.2) Patient does have a firm nodule within the medial band of the plantar fascia and is consistent with a plantar fibroma on the left foot. Fortunately this is not painful. I did discuss potential need for corticosteroid injection versus surgical excision but given is not painful I recommended close monitoring for now 11/23/2023 Plantar wart (ICD-10 - B07.0) There were on the plantar aspect of the right foot between the first and second metatarsal heads which is trimmed to pinpoint bleeding and covered with a Band-Aid. She is to apply rxcn-ajz-owflcru wart topical such as salicylic acid daily after showering and cover with duct tape. She may follow-up in 4 weeks for repeat evaluation or as needed 11/23/2023 Corns and callosities (ICD-10 - L84) Porokeratosis noted on the plantar aspect of the fifth metatarsal head was trimmed without incident to patient satisfaction. I recommended a pumice stone and moisturizer. She may follow-up as needed 11/23/2023 Left foot pain (ICD-10 - M79.672) 11/23/2023 Right foot pain (ICD-10 - M79.671) Plan Of Treatment Treatment Notes Assessment Notes Plantar fascial fibromatosis Patient willams s have a firm nodule within the medial band of the plantar fascia and is consistent with a plantar fibroma on the left foot. Fortunately this is not painful. I did discuss potential need for corticosteroid injection versus surgical excision but given is not painful I recommended close monitoring for now Plantar wart There were on the pl lizbeth aspect of the right foot between the first and second metatarsal heads which is trimmed to pinpoint bleeding and covered with a Band-Aid. She is to apply qysf-wop-ptckfwj wart topical such as salicylic acid daily after showering and cover with duct tape. She may follow-up in 4 weeks for repeat evaluation or as needed Corns and callosities Porokeratosis note d on the plantar aspect of the fifth metatarsal head was trimmed without incident to patient satisfaction. I recommended a pumice stone and moisturizer. She may follow-up as needed Pending Test Test Name Order Date XR Foot LT (3 views) * 11/23/2023 XR Foot RT (3 views) * 11/23/2023 Progress Notes * Kenyetta REYNAOB:1945 (78 yo F)Acc No.[id number]:11/23/2023 New Patient Patient: Elle MEGAMaria E Provider: Migel Payne DPM, MS :1945 A ge:78 Y S ex:Female Date:11/23/2023 Address:[id number] Pcp:Unknown or None Check In:11:06 AM ESTCheck O ut:12:11 PM EST Subjective: * Chief Complaints: * P lantar warts on right foot/ lump in arch of left foot * HPI: G eneral: Patient seen today for initial evaluation of right plantar warts and left lump in the arch of her foot. The right foot has 2 spots under my 5th toe that bother the patient when she walks. The lump in the arch of the left foot which does not cause pain due to it not being on her walking surface. * ROS: G eneral/Constitutional: Chills d enies. F ever d enies. W eight gain?denies. W eight loss d enies. S kin: Skin Ulcers d enies. S kin lesion(s) d enies. ? C ardiovascular: Difficulty breathing on exertion d enies. L eg cramps?denies. E stacey d enies. C hest pain d enies. R espiratory: Difficulty breathing d enies. D yspnea d enies.?Cough d enies. G astrointestinal: Diarrhea d enies. N ausea d enies. V omiting?denies. M usculoskeletal: Bone/Joint Symptoms d enies. C suraj Pain d enies.?Leg cramps d enies. N eurologic: Numbness d enies. T ingling d enies . G ait abnormality d enies. ? H ematology: Anemia D enies. E asy bruising d enies. ? A ll Other Systems: Review of Systems (ROS) S ee HPI for details,All others negative except those mentioned in HPI. * Active Problem List M79.672 Left foot pain Modified On:11/23/2023W/U Status:confirmed M79.671 Right foot pain Modified On:11/23/2023W/U Status:confirmed B07.0 Plantar wart Modified On:11/23/2023/U Status:confirmed * Medical History: * Surgical History: a ppendectomy hysterectomy tonsilectomy * Hospitalization/Major Diagno stic Procedure: * Family History: N on-Contributory. * Social History: T obacco Use: T obacco Control (Standard) T obacco use: N onsmoker * Medications: N one * Allergies: T ape: jennifer[Allergies Verified] Objective: * Vitals: W t:184lbs, Ht: 64 in, Temp:97.5F, HR:88/min, BMI:31.58Index, Pain scale:21-10, Oxygen sat %:99%, Ht-cm: 162.56 cm, Wt-k.46 kg. * Examination: P odiatry Examination: SKIN: s kin intact, n o sign of infection. Skin lesion consistent with porokeratosis on the plantar aspect of the fifth metatarsal head. There is also a verrucous lesion between the first and second metatarsal heads of 0.2 cm with pinpoint bleeding upon trimming. MUSCULOSKELETAL: P ain on palpation on the right plantar aspect of the fifth metatarsal head. There is also a palpable firm soft tissue mass within the medial band of the plantar fascia on the left foot which is not painful. Strength is equal and symmetric bilaterally. NEUROLOGICAL: l ight touch sensation intact, n egative tinel's sign. VASCULAR: P edal pulses palpable, C apillaryrefill is brisk to toe, D igitalhair intact. X -rays: x-rays were obtained & reviewed in my office. There is no significant deformity. Joint spaces are otherwise preserved. No evidence of fracture or recent trauma. Assessment: * Assessment: 1. P lantar fascial fibromatosis - M72.2 (Primary), Fibroma medial band 2 . P lantar wart - B07.0 3 . C orns and callosities - L84 4 . L eft foot pain - M79.672 5 .?Right foot pain - M79.671 Plan: * Treatment: 2. P lantar wart Notes: There were on the plantar aspect of the right foot between the first and second metatarsal heads which is trimmed to pinpoint bleeding and covered with a Band-Aid. She is to apply jboe-loi-qpbuvui wart topical such as salicylic acid daily after showering and cover with duct tape. She may follow-up in 4 weeks for repeat evaluation or as needed 3. C orns and callosities Notes: Porokeratosis noted on the plantar aspect of the fifth metatarsal head was trimmed without incident to patient satisfaction. I recommended a pumice stone and moisturizer. She may follow-up as needed 4. L eft foot pain I maging: XR Foot LT (3 views) * 5. R ight foot pain I maging: XR Foot RT (3 views) * * Procedure Codes: * * Sign off status: Completed Visit Status: C HK (Check Out) true * Provider: Migel Payne DPM, MS Date: 11/23/2023 Generated for Lakisha burr/Nallely/Melanieitting on: 0 11/09/2024 12:29 PM EDT History and Physical Notes * Examination Category Sub-Category Detail Notes Category Not es Podiatry Examination SKIN: skin intact, no sign of infe ction. Skin lesion consistent with porokeratosis on the plantar aspect of the fifth metatarsal head. There is also a verrucous lesion between the first and second metatarsal heads of 0.2 cm with pinpoint bleeding upon trimming X-rays: x-rays were obtained & reviewed in my office. There is no significant deformity. Joint spaces are otherwise preserved. No evidence of fracture or recent trauma MUSCULOSKELETAL: Pain on palpation on the right plantar aspect of the fifth metatarsal head. There is also a palpable firm soft tissue mass within the medial band of the plantar fascia on the left foot which is not painful. Strength is equal and symmetric bilaterally NEUROLOGICAL: light touch sensatio n intact, negative tinel's sign VASCULAR: Pedal pulses palpable, Capillary refill is brisk to toe, Digital hair intact
--- OUTSIDE RECORDS SUMMARY | 2024-11-09 12:30 | XMS_ITS | Patient Health Record ---
Author Organization [facility] [place] Address [address] [place] [address] Care Team Providers Care Unit Control Worker Name Role Phone None, Unknown or Primary Care Provider Unavailab Carlyn De La Torre [phone] Allergies Allergen (clinical drug ingredient) Drug/Non Drug Allergy documented on EMR Reaction Allergy Type Onset Date Status Tape rash Allergy Active Results Component Value Reference Range Notes XR foot ALEXIA min 3V (Not yet reviewed by provider) Interpretation: Performing Lab: Notes/Report: Source Facility: [place] [address] XRay Report Signed Patient: AGUEDA REYNA MR#: [id number] : 1945 Acct:[id number] Age/Sex: 78 / F ADM Date: 11/23/23 Loc: EC Attending Dr: Carlyn Payne D.P.M. Ordering Physician: Carlyn Payne D.P.M. Date of Service: 11/23/23 Procedure(s): XR foot ALEXIA min 3V Accession Number(s): [id number] cc: Syed Hernandes D.O.; Carlyn Payne D.P.M. [place] [id number] Patient Name: AGUEDA REYNA MRN: [id number] date: 1945 Sex: F Assigned Patient Location: Current Patient Location: Accession/Order Number: [id number] Exam Date: 11/23/2023 11:33 Report Date: 11/24/2023 07:31 At the request of: CARLYN PAYNE Procedure: XR foot ALEXIA min 3V EXAMINATION: XR foot ALEXIA min 3V HISTORY: BILATERAL FOOT PAIN COMPARISON: No relevant comparison available. FINDINGS: RIGHT FINDINGS: BONES: No acute fracture or dislocation. Mild enthesopathic spurring of the calcaneus at the Achilles and plantar insertions. SOFT TISSUES: Negative. No visible soft tissue swelling. OTHER: Negative. LEFT FINDINGS: BONES: No acute fracture or dislocation. Mild plantar enthesopathic spurring of the calcaneus SOFT TISSUES: Negative. No visible soft tissue swelling. OTHER: Negative. XR/XR foot ALEXIA min 3V IMPRESSION: Mild bilateral calcaneal enthesopathy Electronically authenticated by: GEOVANNY GONZALES Date: 11/24/2023 07:31 Dictated By: Geovanny Gonzales M.D. Signed By: 11/24/2334 DD/ 0 TD/TT: General Operations Agent: [place] [address] XRay Report Signed Patient: LILO REYNA MR#: [id number] : 1945 Acct:[id number] Age/Sex: 78 / F ADM Date: 11/23/23 Loc: EC Attending Dr: Carlyn Payne D.P.M. Ordering Physician: Carlyn Payne D.P.M. Date of Service: 11/23/23 Procedure(s): XR foot ALEXIA min 3V Accession Number(s): [id number] cc: Syed Hernandes; Carlyn Payne D.P.M. [place] [id number] Patient Name: AGUEDA REYNA MRN: [id number] date: 1945 Sex: F Assigned Patient Location: Current Patient Location: Accession/Order Numb er: [id number] Exam Date: 11/23/2023 11:33 Report Date: 11/24/2023 07:31 At the request of: CARLYN PAYNE Procedure: XR foot ALEXIA min 3V EXAMINATION: XR foot ALEXIA min 3V HISTORY: BILATERAL FOOT PAIN COMPARISON: No relev ant comparison available. FINDINGS: RIGHT FINDINGS: BONES: No acute frac ture or dislocation. Mild enthesopathic spurring of the calcaneus at the Ach illes and plantar insertions. SOFT TISSUES: Negati ve. No visible soft tissue swelling. OTHER: Negative. LEFT FINDINGS: BONES: No acute frac ture or dislocation. Mild plantar enthesopathic spurring of the calcaneus SOFT TISSUES: Negati ve. No visible soft tissue swelling. OTHER: Negative. X R/XR foot ALEXIA min 3V IMPRESSION: Mild bilateral calca kami enthesopathy Electronically authe nticated by: GEOVANNY GONZALES Date: 11/24/2023 07:31 Dictated By: Geovanny Gonzales M.D. Signed By: 11/24/23733 DD/ 0 TD/TT: General Operations Agent: Reason For Referral No Information Social History Tobacco Use: Social History Observation Description Date Details (start date - stop date) Never Smoker NA - NA Tobacco Control (Standard) Question Answer Notes Tobacco use: Nonsmoker Problems Problem Type SNOMED Code ICD Code Onset Dates Problem Status W/U Status Risk Notes Problem 13964594562205346 Plantar wart (B07.0) Active confirmed Problem Pain in right foot (031440755564741) Right foot pain (M79.671) Active confirmed Problem Pain in left foot (197094615907871) Left foot pain (M79.672) Active confirmed Vital Signs Heart Rate 88 /min 11/23/2023 Temperature 97.5 degrees Fahrenheit 11/23/2023 Oximetry 99 % 11/23/2023 Height 64 in 11/23/2023 Weight 184 lbs 11/23/2023 BMI 31.58 kg/m2 11/23/2023 Encounters Encounter Location Date Provider Diagnosis 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 She is to apply yhum-sok-zntvhcf wart topical such as salicylic acid daily [...] pain (ICD-10 - M79.671) Plan Of Treatment Pending Test Test Name Order Date XR Foot LT (3 views) * 11/23/2023 XR Foot RT (3 views) * 11/23/2023 XR foot ALEXIA min 3V 11/24/2023 Insurance Providers Payer Name Payer Address Payer Phone Subscriber Number Group Number Insured Name Patient Relationship to Insured Coverage Start Date Coverage End Date [employer]AN [address] [place] [address] [id number] Agueda Reyna Self - patient is the insured Medical (General) History Surgical History Surgery Date(Month/Year) tonsilectomy hysterectomy appendectomy
--- OUTSIDE RECORDS SUMMARY | 2024-11-09 12:30 | XMS_ITS | Clinical Summary ---
Author Organization [facility] Address [address] [place] [address] Care Team Providers Care Cement Sprayer Helper Name Role Phone Unavailable Primary Care Provider Unavailabl e Social History Tobacco Use Types Packs/Day Years Used Date Smoking Tobacco: Never Assessed Comments Unknown Sex and Gender Information Value Date Recorded Sex Assigned at Not on file Legal Sex Female 8:34 PM EDT Gender Identity Not on file Sexual Orientation Not on file Last Filed Vital Signs Vital Sign Reading Time Taken Comments Blood Pressure 128/70 04/13/2019 12:00 PM EST Pulse - - Temperature - - Respiratory Rate - - Oxygen Saturation - - Inhaled Oxygen Concentration - - Weight 90.3 kg (199 lb) 04/08/2021 12:00 PM EST Height 165.1 cm (5' 5 ) 04/08/2021 12:00 PM EST Body Mass Index 33.12 04/08/2021 12:00 PM EST Plan of Treatment [place] [id number] [employer]
--- OUTSIDE RECORDS SUMMARY | 2024-11-09 12:30 | XMS_ITS | Clinical Summary ---
Author Organization [employer] tem Address [id number] [address] [place] [address] Care Team Providers Care Surg Physician Asst Name Role Phone Syed Hernandes DO Primary Care Provider [phone] Allergies Active Allergy Reactions Criticality Noted Date Comments Adhesive Rash Low 04/15/2021 Medications acetaminophen (TYLENOL ARTHRITIS) 650 mg 8 hr tablet Take 650 mg by mouth every 8 (eight) hours as needed for pain. Active cetirizine (ZyrTEC) 10 mg tablet Take 10 mg by mouth daily. Active amLODIPine (NORVASC) 5 mg tablet Take 5 mg by mouth daily. Active Active Problems No known active problems Family History Medical History Relation Name Comments COPD Father Heart disease Mother Relation Name Status Comments Father Alive Mother Social History Tobacco Use Types Packs/Day Years Used Date Smoking Tobacco: Never Smokeless Tobacco: Never Alcohol Use Standard Drinks/Week Comments Yes 0 (1 standard drink = 0.6 oz pur e alcohol) social Childcare Answer Date Recorded Childcare Unknown 08/24/2018 Employment Answer Date Recorded Employment Unknown 08/24/2018 Comments No Sex and Gender Information Value Date Recorded Sex Assigned at Not on file Legal Sex Female 11:38 AM EDT Gender Identity Not on file Sexual Orientation Not on file Last Filed Vital Signs Vital Sign Reading Time Taken Comments Blood Pressure 119/71 04/23/2021 1:50 PM EST Pulse 74 04/23/2021 1:50 PM EST Temperature 36.1 C (97 F) 04/23/2021 1:09 PM EST Respiratory Rate 13 04/23/2021 1:50 PM EST Oxygen Saturation 94% 04/23/2021 1:50 PM EST Inhaled Oxygen Concentration - - Weight 92.5 kg (204 lb) 04/23/2021 11:22 AM EST Height 165.1 cm (5' 5 ) 04/23/2021 11:22 AM EST Body Mass Index 33.95 04/23/2021 11:22 AM EST Plan of Treatment Health Maintenance Due Date Last Done Comments Depression Screening 1957 Tobacco Screening 1957 DTaP,Tdap and Td Vaccines (1 - Tdap) 10/29/1966 Fall Risk Screening 10/29/2012 Zoster (Shingles) Vaccine (2 of 3) 03/13/2017 01/16/2017 COVID-19 Vaccine (4 - 2023-2 5 season) 2023 12/30/2020, 05/17/2020, 04/26/2020 Influenza Vaccine 11/13/2024 12/19/2020, , 12/28/2018, Additional history exists Medical Devices Not on file Insurance [employer] Care Teams Surg Physician Asst Relationship Specialty Start Date End Date Syed Hernandes DO [address] [facility] [address] PCP - General Internal Medicine 04/15/21
--- OUTSIDE RECORDS SUMMARY | 2024-11-09 12:43 | XMS_ITS | CCD ---
Author Organization [facility] Care Team Providers Care Repairer Engine Production Name Role Phone Warner Almonte Admitting Unavailable Warner Almonte Attending Unavailable Warner Almonte Referring Unavailable SYED LOPEZ~[id number] UNKNOWN Primary Care Unavailable Warner Almonte Admitting Unavailable Gage, Warner Attending Unavailable Gage, Warner Referring Unavailable SYED LOPEZ~[id number] UNKNOWN Primary Care Unavailable Syed Lopez Unavailable [...] Adhesive agent Drug allergy (disorder) 11-27-2016 [facility] Repository Medications Current Medications Medication Drug [...] A1Con 2022 ADA RECOMMENDATION SEE BELOW Normal [facility] Comment on above: Result Comment: ADA RECOMMENDED LIMIT 4.0 - 6.0 ADA THERAPEUTIC TARGET < 7.0 ACTION SUGGESTED > 7.0 Performed By: #### D ATA1C #### [facility] [address] [place] [address] Dr. Joshua Arshad Glucose [Mass/Vol] 151 mg/dL Normal [facility] Comment on above: Performed By: #### D ATA1C #### [facility] [address] [place] [address] Dr. Joshua Arshad HbA1c (Bld) [Mass fraction] 6.9 % Critically high 4.5-6.2 [facility] Comment on above: Performed By: #### D ATA1C #### [facility] [address] [place] [address] Dr. Joshua Arshad CBC AUTO DIFFon 07-08-2022 BASO # 0.0 103/ul Normal 0.0-0.1 [facility] Comment on above: Performed By: #### C BC #### [facility] [address] [place] [address] Dr. Joshua Arshad Basophils/100 WBC (Bld) 0.6 % Normal 0.2-2.0 [facility] Comment on above: Performed By: #### C BC #### [facility] [address] [place] [address] Dr. Joshua Arshad EO # 0.1 103/ul Normal 0.0-0.7 [facility] Comment on above: Performed By: #### C BC #### [facility] [address] [place] [address] Dr. Joshua Arshad Eosinophils/100 WBC (Bld) 2.3 % Normal 0.9-7.0 [facility] Comment on above: Performed By: #### C BC #### [facility] [address] [place] [address] Dr. Joshua Arshad Erythrocyte distribution width (RBC) [Ratio] 12.8 % Normal 11.0-15.0 [facility] Comment on above: Performed By: #### C BC #### [facility] [address] [place] [address] Dr. Joshua Arshad Hematocrit (Bld) [Volume fraction] 43.3 % Normal 36.0-48.0 [facility] Comment on above: Performed By: #### C BC #### [facility] [address] [place] [address] Dr. Joshua Arshad Hemoglobin (Bld) [Mass/Vol] 14.0 g/dL Normal 12.0-16.0 [facility] Comment on above: Performed By: #### C BC #### [facility] [address] [place] [address] Dr. Joshua Arshad IG # 0.01 10e3/ul Normal 0.00-0.03 [facility] Comment on above: Performed By: #### C BC #### [facility] [address] [place] [address] Dr. Joshua Arshad IG % 0.2 % Normal 0.0-0.5 [facility] Comment on above: Performed By: #### C BC #### [facility] [address] [place] [address] Dr. Joshua Arshad LYMPH # 1.6 103/ul Normal 1.2-3.8 [facility] Comment on above: Performed By: #### C BC #### [facility] [address] [place] [address] Dr. Joshua Arshad Lymphocytes/100 WBC (Bld) 34.2 % Normal 20.5-60.0 [facility] Comment on above: Performed By: #### C BC #### [facility] [address] [place] [address] Dr. Joshua Arshad MANUAL DIFF REQ NO Normal [facility] Comment on above: Performed By: #### C BC #### [facility] [address] [place] [address] Dr. Joshua Arshad MCH (RBC) [Entitic mass] 29.5 pg Normal 26.7-34.0 [facility] Comment on above: Performed By: #### C BC #### [facility] [address] [place] [address] Dr. Joshua Arshad MCHC (RBC) [Mass/Vol] 32.3 g/dL Normal 29.9-35.2 [facility] Comment on above: Performed By: #### C BC #### [facility] [address] [place] [address] Dr. Joshua Arshad MCV (RBC) [Entitic vol] 91.4 fL Normal 81.0-99.0 [facility] Comment on above: Performed By: #### C BC #### [facility] [address] [place] [address] Dr. Joshua Arshad MONO # 0.3 103/ul Normal 0.3-0.8 [facility] Comment on above: Performed By: #### C BC #### [facility] [address] [place] [address] Dr. Joshua Arshad Monocytes/100 WBC (Bld) 6.3 % Normal 1.7-12.0 [facility] Comment on above: Performed By: #### C BC #### [facility] [address] [place] [address] Dr. Joshua Arshad NEUT # 2.7 103/ul Normal 1.4-6.5 [facility] Comment on above: Performed By: #### C BC #### [facility] [address] [place] [address] Dr. Joshua Arshad Neutrophils/100 WBC (Bld) 56.4 % Normal 43.0-75.0 [facility] Comment on above: Performed By: #### C BC #### [facility] [address] [place] [address] Dr. Jsohua Arshad Platelet mean volume (Bld) [Entitic vol] 10.8 fL Normal 9.5-13.5 [facility] Comment on above: Performed By: #### C BC #### [facility] [address] [place] [address] Dr. Joshua Arshad PLT 209 103/ul Normal 150-450 [facility] Comment on above: Performed By: #### C BC #### [facility] [address] [place] [address] Dr. Joshua Arshad RBC 4.74 106/ul Normal 4.20-5.40 [facility] Comment on above: Performed By: #### C BC #### [facility] [address] [place] [address] Dr. Joshua Arshad WBC 4.7 103/ul Normal 4.0-11.0 [facility] Comment on above: Performed By: #### C BC #### [facility] [address] [place] [address] Dr. Joshua Arshad PROF CHEM 8 (BAS METB)on Anion gap [Moles/Vol] 14.0 mmol/L Normal [facility] Comment on above: Performed By: #### T SH, BMP #### [facility] [address] [place] [address] Dr. Joshua Arsahd Calcium [Mass/Vol] 9.5 mg/dL Normal 8.5-10.1 [facility] Comment on above: Performed By: #### T SH, BMP #### [facility] [address] [place] [address] Dr. Joshua Arshad Chloride [Moles/Vol] 103 mmol/L Normal 98-107 [facility] Comment on above: Performed By: #### T SH, BMP #### [facility] [address] [place] [address] Dr. Joshua Arshad CO2 [Moles/Vol] 27.1 mmol/L Normal 21.0-32.0 [facility] Comment on above: Performed By: #### T SH, BMP #### [facility] [address] [place] [address] Dr. Joshua Arshad Creatinine [Mass/Vol] 0.75 mg/dL Normal 0.55-1.02 [facility] Comment on above: Performed By: #### T SH, BMP #### [facility] [address] [place] [address] Dr. Joshua Arshad EGFR-AF CAMBODIAN >60 Normal >=60 [facility] Comment on above: Performed By: #### T SH, BMP #### [facility] [address] [place] [address] Dr. Joshua Arshad EGFR-NON AF CAMBODIAN >60 Normal >=60 [facility] Comment on above: Performed By: #### T SH, BMP #### [facility] [address] [place] [address] Dr. Joshua Arshad Glucose [Mass/Vol] 134 mg/dL Critically high 74-106 [facility] Comment on above: Performed By: #### T SH, BMP #### [facility] [address] [place] [address] Dr. Joshua Arshad Potassium [Moles/Vol] 4.1 mmol/L Normal 3.5-5.1 [facility] Comment on above: Performed By: #### T SH, BMP #### [facility] [address] [place] [address] Dr. Joshua Arshad Sodium [Moles/Vol] 140 mmol/L Normal 136-145 [facility] Comment on above: Performed By: #### T SH, BMP #### [facility] [address] [place] [address] Dr. Joshua Arshad Urea nitrogen [Mass/Vol] 10.0 mg/dL Normal 7.0-18.0 [facility] Comment on above: Performed By: #### T SH, BMP #### [facility] [address] [place] [address] Dr. Joshua Arshad Urea nitrogen/Creatinine [Mass ratio] 13.3 mg/mg Normal [facility] Comment on above: Performed By: #### T SH, BMP #### [facility] [address] [place] [address] Dr. Joshua Arshad TSHon 07-08-2022 TSH 1.694 uIU/mL Normal 0.358-3.740 [facility] Comment on above: Performed By: #### T SH, BMP #### [facility] [address] [place] [address] Dr. Joshua Arshad MG MAMM SCREEN 3D ALEXIA CADon 01-05-2022 MG MAMM SCREEN 3D ALEXIA CAD Patient: AGUEDA REYNA Exam Date: 01/05/2022 : 1945 Gender:F Ordering : DR SYED LOPEZ D.O. Admission #: [id number] Family : Order #: [id number] CLICK HERE TO VIEW EXAM RADIOLOGY REPORT [...] Lumpectomy, Chemo, Radiation Family Cancers None LOCATION: [facility] BREAST COMPOSITION: Heterogeneously dense,which may obscure small [...] MD on 01/05/2022 at 14:31 Normal [facility] Coding Summary.on 05-12-2018 Coding Summary. 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 CODING DATE: 05/06/2018 FINAL [facility] STATUS: Home (Routine DC) PAYOR: Medicare APC DESCRIPTION 5481 Laser Eye Procedures ADMIT DX: REASON FOR VISIT DX: H26.491 Other secondary cataract, right eye FINAL DX: PRINCIPAL: H26.491 Other secondary cataract, right eye SECONDARY: PYMT PROC APC STAT DESCRIPTION DOCTOR NAME DATE [id number] 5481 T Discission of secondary Warner Almonte [...] Barbara Delaney Date Saved: 05/06/2018 08:06 am [facility] Vital Signs Date Time Vital Sign Value Performing Clinician Facility 01-07-2024 11: Body height 165.1 cm [facility] 01-07-2024 11: Body mass index (BMI) [Ratio] 32.1 kg/m2 [facility] 01-07-2024 11: Body temperature 95.9 [degF] [facility] 01-07-2024 11: Body weight 87.71 kg [facility] 01-07-2024 11:040 Diastolic blood pressure 88 mm[Hg] [facility] 01-07-2024 11: Heart rate 67 /min [facility] 01-07-2024 11:21-0400 SaO2% (BldA) [Mass fraction] 96 % [facility] 01-07-2024 11:21-0400 Systolic blood pressure 138 mm[Hg] [facility] 10-21-2023 11:48-0400 Body height 165.1 cm [facility] 10-21-2023 11:48-0400 Body mass index (BMI) [Ratio] 31.9 kg/m2 [facility] 10-21-2023 11:48-0400 Body weight 87.08 kg [facility] 10-21-2023 11:48-0400 Diastolic blood pressure 85 mm[Hg] [facility] 10-21-2023 11:48-0400 Heart rate 61 /min [facility] 10-21-2023 11:48-0400 Respiratory rate 16 /min [facility] 10-21-2023 11:48-0400 SaO2% (BldA) [Mass fraction] 97 % [facility] 10-21-2023 11:48-0400 Systolic blood pressure 152 mm[Hg] [facility] 10-19-2022 13:30-0400 Body height 165.1 cm Syed Ball Other [facility] Other 10-19-2022 13:30-0400 Body mass index (BMI) [Ratio] 31.21 kg/m2 Syed Ball Other [facility] Other 10-19-2022 13:30-0400 Body weight 85.1 kg Syed Ball Other [facility] Other 10-19-2022 13:30-0400 Diastolic blood pressure 88 mm[Hg] Syed Ball Other [facility] Other 10-19-2022 13:30-0400 Respiratory rate 12 /min Syed Ball Other [facility] Other 10-19-2022 13:30-0400 Systolic blood pressure 139 mm[Hg] Syed Ball Other [facility] Other 07-02-2022 10:15-0400 Body height 165.1 cm Syed Ball Other [facility] Other 07-02-2022 10:15-0400 Body mass index (BMI) [Ratio] 34.78 kg/m2 Syed Ball Other [facility] Other 07-02-2022 10:15-0400 Body weight 94.8 kg Syed Ball Other [facility] Other 07-02-2022 10:15-0400 Diastolic blood pressure 80 mm[Hg] Syed Ball Other [facility] Other 07-02-2022 10:15-0400 Respiratory rate 16 /min Syed Ball Other [facility] Other 07-02-2022 10:15-0400 Systolic blood pressure 112 mm[Hg] Syed Ball Other [facility] Other Encounters Encounter Date Encounter Type Care Provider Facility Start: 01-13-2024 End: 01-13-2024 [facility] Work Phone: Start: 01-13-2024 End: 01-13-2024 Patient encounter procedure [facility]ly [facility] Work Phone: Start: 01-07-2024 End: 01-07-2024 ambulatory [facility] Work Phone: Start: 01-07-2024 End: 01-07-2024 Patient encounter procedure Formerly [facility] Work Phone: Start: 10-21-2023 End: 10-21-2023 ambulatory [facility] Work Phone: Start: 10-21-2023 End: 10-21-2023 Patient encounter procedure [facility]ly [facility] Work Phone: Start: 10-19-2022 End: 10-19-2022 ambulatory Syed Lopez Other [facility] Other Start: 10-19-2022 Patient encounter procedure Syed Lopez [facility] Start: 10-19-2022 Telephone encounter Syed Lopez [facility] Start: 08-17-2022 End: 08-17-2022 ambulatory Syed Lopez Other [facility] Other Start: 08-17-2022 Office outpatient vi sit 15 minutes Syed Lopez [facility] Start: 07-15-2022 End: 07-16-[address] SYED LOPEZ Facility:[facility] Start: 07-09-2022 End: 07-09-2022 ambulatory Syed Lopez Other [facility] Other Start: 07-09-2022 Telephone encounter Syed John [facility] Start: 07-08-2022 End: 07-09-[address] SYED LOPEZ Facility:[facility] Start: 07-02-2022 End: 07-02-2022 ambulatory Syed Lopez Other [facility] Other Start: 07-02-2022 Office outpatient vi sit 15 minutes Syed John [facility] Start: 06-12-2022 End: 06-12-2022 ambulatory Syed Lopez Other [facility] Other Start: 06-12-2022 Office outpatient vi sit 15 minutes Syed Lopez [facility] Start: 01-05-2022 End: 01-06-[address] SYED LOPEZ Facility:[facility] Start: 11-11-2021 Adult health examination Syed Lopez Other [facility] Other Start: 05-10-2018 End: 05-10-2018 Patient encounter procedure Warner Almonte Facility:[facility] Start: 05-03-2018 End: 05-03-2018 Patient encounter procedure Warner Almonte Facility:[facility] Procedures Date Procedure Procedure Detail Performing Clinician Start: 11-02-2016 Screening for malign ant neoplasm of colon Syed Lopez Other Depression screening Patsy Lopez Other Plan of Treatment Date Care Activity Detail Author Comprehensive metabo lic 2000 panel - Serum or Plasma [facility] Immunizations Immunization Date Immunization Notes Care Provider Fa cility 01-13-2024 influenza, high dose seasonal, preservative-free [facility] 12-02-2017 influenza virus vaccine, split virus (incl. purified surface antigen) Syed Lopez Other [facility] Other 12-02-2017 influenza virus vaccine, unspecified formulation [facility] 11-02-2016 pneumococcal conjuga te vaccine, 13 valent Syed Lopez Other [facility] 12-25-2015 influenza virus vaccine, split virus (incl. purified surface antigen) Syed John Other [facility] Other 12-25-2015 influenza virus vaccine, unspecified formulation [facility] 02-11-2001 pneumococcal polysaccharide vaccine, 23 valent Syed Lopez Other [facility] Payers Date Payer Category Payer Self-pay 1959 Unknown [id number] 1945 Unknown [id number] 2.16.84 [id number] 1945 Unknown [id number] 2.16.84 [id number] 1945 Unknown [id number] 2.16.84 [id number] 1945 Unknown [id number] 2.16.84 [id number] Medicare Medicare [id number] Unknown [id number] 2.16.84 [id number] Social History Date Type Detail Facility Sex Assigned At [employer] [facility] Other Start: 1945 Sex Assigned At Female F [facility] Evaluation note 10-19-2022 Note Date [...] breast cancer No s/s recurrence. f/u Oncology [facility] Other Evaluation note 08-17-2022 Note Date & Type Note Facility 08-17-2022 Evaluation note Encounter Date Diagnosis Assessment Notes Aug, Acute bronchitis due to other specified organisms (ICD-10 - J20.8) Instructed to use Robitussin or Mucinex for cough, saline or Flonase NS for congestion, Tylenol for pain and fever. [facility] Other Evaluation note 07-02-2022 Note Date & [...] R53.83) Jun, Lumbar spondylosis (ICD-10 - M47.816) [facility] Other Evaluation note 06-12-2022 Note Date & [...] to achieve/maintain a normal BMI. Avoid decongestants [facility] Other Evaluation note Note Date & Type Note Facility Evaluation note No Information [facility] Other Evaluation note Note Date & Type Note Facility Evaluation note Diagnosis Onset Date Breast cancer acute Hypercholesterolemia acute Hypertension acute IFG (impaired fasting glucose) acute Medicare annual wellness visit, subsequent noneactive [facility] Work Phone: Evaluation note Note Date & Type Note Facility Evaluation note Diagnosis Onset Date Breast cancer acute Hypercholesterolemia acute Hypertension acute IFG (impaired fasting glucose) acute Plantar wart of right foot a cute Subcutaneous nodule of left foot acute Medicare annual wellness visit, subsequent noneactive [facility] Work Phone: Evaluation note Note Date & Type Note Facility Evaluation note Diagnosis Onset Date Breast cancer acute Hypercholesterolemia acute Hypertension acute IFG (impaired fasting glucose) acute Plantar wart of right foot a cute Subcutaneous nodule of left foot acute Medicare annual wellness visit, subsequent noneactive Maxillary sinusitis acute [facility] Work Phone: History general Narrative - Reported Note Date & Type Note Facility History general Narrative - Reported Type Medical History essential tremor Medical History hyperlipidemia Medical History hypertension Medical History impaired fasting glucose Medical History malignant neoplasm of UOQ of rig ht breast Medical History obesity Surgical History colonoscopy 11/2016 Surgical History right lumpectomy w/ LN dissecti on 12/2014 [facility] Other History general Narrative - Reported Note [...] on 12/2014 Hospitalization History SEE SURGICAL HX [facility] Other Summary Purpose Family History Relationship Condition [...] and content) DATE CREATED AUTHOR 07/18/2018 [employer] [facility] DATE CREATED AUTHOR AUTHOR'S ORGANIZ ATION 07/16/2022 [facility] REASON FOR VISIT (unrecogniz ed section and content) Sinuses/Congestion [phone] on Chestlab resultsSore Rcatgs-[phone] work needed Care Teams (unrecognized sec tion [...] End: January 07, 2024 Christiane Connor APRN THEATRE PROGRAM DIRECTOR-C Attending Provider Active Start: January 07, 2024 [...] BE BASED ON THE PRIMARY CLINICAL RECORDS. [employer] [facility]. provides no warranty or guarantee of the accuracy or completeness of information in this document.
[2024-11-09 12:48] LABS: Hematocrit 43.3 % (36.0-48.0); Hemoglobin 14.4 g/dL (12.0-16.0); Immature Granulocytes Abs Auto 0.01 10^3/uL (0.00-0.03); Immature Granulocytes Pct Auto 0.2 % (0.0-0.5); Lymphocytes Absolute Auto 1.4 10^3/uL (1.2-3.8); Mean Corpuscular HGB Conc 33.3 g/dL (29.9-35.2); Mean Corpuscular Hemoglobin 30.3 pg (26.7-34.0); Mean Corpuscular Volume 91.0 fL (81.0-99.0); Platelet Count 234 10^3/uL (150-450); Red Blood Count 4.76 10^6/uL (4.20-5.40); White Blood Count 4.8 10^3/uL (4.0-11.0)
[2024-11-09 13:33] LABS: Alanine Aminotransferase 24 U/L (14-59); Albumin Globulin Ratio 1.2; Albumin Level 4.1 g/dL (3.4-5.0); Alkaline Phosphatase 80 U/L (46-116); Anion Gap 12.4; Aspartate Amino Transferase 14 U/L (15-37); Blood Urea Nitrogen 16.0 mg/dL (7.0-18.0); Calcium 9.3 mg/dL (8.5-10.1); Carbon Dioxide 26.7 mmol/L (21.0-32.0); Chloride 107 mmol/L (98-107); Estimated GFR (African America >60 (>=60 mL/min/1.73m^2); Estimated GFR (Non-African Ame >60 (>=60 mL/min/1.73m^2); Globulin 3.4 g/dL; Glucose 129 mg/dL (74-106); Potassium 4.1 mmol/L (3.5-5.1); Sodium 142 mmol/L (136-145); Thyroid Stimulating Hormone 2.433 uIU/mL (0.358-3.740); Total Protein 7.5 g/dL (6.4-8.2)
== END 2024-11-09 12:25 | disposition home or self-care (01) ==
PROVIDERS: PCP Internal Medicine; Visit Provider Internal Medicine
DX: R73.01 Impaired fasting glucose (principal); R53.83 Other fatigue; I10 Essential (primary) hypertension
CPT/HCPCS: 36415; 80053; 83036; 84443; 85025

== ENCOUNTER 2025-01-23 16:01 | Outpatient (OUT) | payer MEDICARE, SELFPAY ==
--- NOTE | 2025-01-23 16:04 | MM_ITS ---
Patient Name: AGUEDA DARDEN MR#: [id number] : 1945 Exam Date: 01/23/2025 Ordering Doctor: DR OBDULIA LOPEZ D.O. RADIOLOGY REPORT PROCEDURE: MM TOMOSYNTHESIS SCREENING BI COMPARISON: MM TOMOSYNTHESIS SCREENING BI, 01/13/2024. MM TOMOSYNTHESIS SCREENING BI, 01/11/2023. MG MAMM SCREEN 3D ALEIXA CAD, 01/05/2022. MG MAMM ALEXIA SCRN W CAD DIG, 11/21/2013. INDICATIONS: Screening for malignant neoplasm Calculator Name [facility] Breast Cancer Risk Assessment Tool 5 Year Breast Cancer Risk n/a% Lifetime Breast Cancer Risk n/a% Personal Breast Cancer Yes, Breast cancer right upper outer quad age 69 Personal Ovarian Cancer No Treatments Lumpectomy, Chemo, Radiation Family Cancers None LOCATION: [facility] BREAST COMPOSITION: The breasts are heterogeneously dense, which may obscure small masses. FINDINGS: RIGHT BREAST: No significant suspicious finding. Treatment related changes are redemonstrated in the right breast and right axilla . LEFT BREAST: No significant suspicious finding. DIAGNOSTIC CATEGORY 2--BENIGN FINDING. NO CHANGE FROM COMPARISON. RECOMMENDATIONS: ROUTINE MAMMOGRAM AND CLINICAL EVALUATION IN 12 MONTHS. Dictated by: Issac Gould MD on 01/23/2025 at 17:59 Approved by: Issac Gould MD on 01/23/2025 at 18:07
--- OUTSIDE RECORDS SUMMARY | 2025-01-23 16:05 | XMS_ITS | Clinical Summary ---
Author Organization [facility] Address [address] [place] [address] Care Team Providers Care Director Of Security Name Role Phone Unavailable Primary Care Provider Unavailabl e Social History Tobacco UseTypesPacks/DayYears UsedDateSmoking Tobacco: Never Assessed CommentsUnknownSex and Gender InformationValueDate RecordedSex Assigned at Not on fileLegal MbbFaonis34/01/2023 8:34 PM EDTGender IdentityNot on fileSexual OrientationNot on file Last Filed Vital Signs Vital SignReadingTime TakenCommentsBlood Dhztbnby805/70004/13/2019 12:00 PM EST Pulse--Temperature--Respiratory Rate--Oxygen Saturation--Inhaled Oxygen Concentration--Elpbuv67.3 kg (199 lb)04/08/2021 12:00 PM FKGMeurdc333.1 cm (5' 5 )04/08/2021 12:00 PM ESTBody Mass Index33.12004/08/2021 12:00 PM EST Plan of Treatment Not on file Insurance * Guarantor: Maria E Reyna TypeRelation to PatientDate of BirthPhone Billing AddressPersonal/NflufiTgpc09/17/1946 [place] [address]
--- OUTSIDE RECORDS SUMMARY | 2025-01-23 16:05 | XMS_ITS | Clinical Summary ---
Author Organization [employer] [facility] tem Address [id number] [address] [place] [address] Care Team Providers Care Leave Specialist Name Role Phone Syed Hernandes DO Primary Care Provider [phone] Allergies Active AllergyReactionsCriticalityNoted SrueJbnnvrsaAjtexbxcHgalJpj09/01/2022 Medications MedicationSigDispense QuantityRefillsLast FilledStart DateEnd DateStatus acetaminophen (TYLENOL ARTHRITIS) 650 mg 8 hr tablet Take 650 mg by mouth every 8 (eight) hours as needed for pain.Active cetirizine (ZyrTEC) 10 mg tablet Take 10 mg by mouth daily.Active amLODIPine (NORVASC) 5 mg tablet Take 5 mg by mouth daily.Active Active Problems No known active problems Family History Medical HistoryRelationNameCommentsCOPDFatherHeart diseaseMotherRelationName StatusCommentsFatherAliveMotherDeceased Social History Tobacco UseTypesPacks/DayYears UsedDateSmoking Tobacco: NeverSmokeless Tobacco: NeverAlcohol UseStandard Drinks/WeekCommentsYes0 (1 standard drink = 0.6 oz pure alcohol)socialChildcareAnswerDate UojkrpqqGdzikdvfmVgjaatx65/12/2019Employment AnswerDate LrmpskdhXbemeeeuztPtnrrzr67/12/2019CommentsNoSex and Gender InformationValueDate RecordedSex Assigned at BirthNot on fileLegal SexFemale 10/18/2014 11:38 AM EDTGender IdentityNot on fileSexual OrientationNot on file Last Filed Vital Signs Vital SignReadingTime TakenCommentsBlood Brymywsp084/7102/11/2021 1:50 PM EST Wpxje4252 1:50 PM JUKCcjlsimfsbw16.1 ??C (97 ??F)04/23/2021 1:09 PM EST Respiratory Cldt3403 1:50 PM ESTOxygen Wtmqhjtlun63%04/23/2021 1:50 PM ESTInhaled Oxygen Concentration--Xuijwb51.5 kg (204 lb)04/23/2021 11:22 AM EST Rcbodo272.1 cm (5' 5 )04/23/2021 11:22 AM ESTBody Mass Index33.95004/23/2021 11:22 AM EST Plan of Treatment Health MaintenanceDue DateLast DoneCommentsDepression Tsdtxocpr52/17/1960Tobacco Pqkjycrbc21/17/1960DTaP,Tdap and Td Vaccines (1 - Tdap)10/29/1966Fall Risk Qmigkkvlf12/17/2013Zoster (Shingles) Vaccine (2 of 3)RSV ( or age 60+ yrs) (1 - 1-dose 75+ series)10/29/2022OVID-19 Vaccine (4 - 2024- season)/, 05/17/2020, 04/26/2020Influenza Vaccine /09/2020, 12/27/2019, 12/28/2018, Additional history exists Medical Devices Not on file Insurance MemberSubscriberPlan / Payer (Effective 2017-Present)Name:Maria E Reyna Relation to Subscriber:SelfName:Maria E Reyna Payer ID:[id number] ([facility]) Group ID:[id number] Type:Not on file Address: [address] [place] [phone] Care Teams Team MemberRelationshipSpecialtyStart DateEnd Date Syed Hernandes DO [address] [place] [address] PCP - GeneralInternal Medicine04/15/21
--- OUTSIDE RECORDS SUMMARY | 2025-01-23 16:05 | XMS_ITS | Patient Health Record ---
Author Organization [facility] [place] Address [address] [place] [address] Care Team Providers Care Regional Marketing Manager Name Role Phone None, Unknown or Primary Care Provider Unavailab le Allergies Allergen (clinical drug ingredient) Drug/Non Drug Allergy documented on EMR Reaction Allergy Type Onset Date Status TaperashAllergyActive Reason For Referral No Information Social History Tobacco Use: Social History Observation Description Date Details (start date - stop date) Never Smoker NA - NA Tobacco Control (Standard) Question Answer Notes Tobacco use: Nonsmoker Problems Problem Type SNOMED Code ICD Code Onset Dates Problem Status W/U Status Risk Notes Problem Plantar wart (31631186) Plantar wart (B07 .0) ActiveconfirmedProblemPain in right foot (970475091723158)Right foot pain (M79.671)ActiveconfirmedProblemPain in left foot (439318437398421)Left foot pain (M79.672)Activeconfirmed Plan Of Treatment Pending Test Test Name Order Date XR Foot LT (3 views) * 11/23/2023 XR Foot RT (3 views) * 11/23/2023 XR foot ALEXIA min 3V 11/24/2023 Insurance Providers Payer Name Payer Address Payer Phone Subscriber Number Group Number Insured Name Patient Relationship to Insured Coverage Start Date Coverage End Date ANTH MEDICARE ADV PLAN [address] [place] [address] [id number] [id number] Reyn[facility] Self - patient is the insured Medical (General) History Surgical History Surgery Date(Month/Year) appendectomy hysterectomytonsilectomy
--- OUTSIDE RECORDS SUMMARY | 2025-01-23 16:07 | XMS_ITS | CCD ---
Author Organization [facility] Care Team Providers Care Staff Research Associate Name Role Phone Warner Almonte Admitting Unavailable Gage, Warner Attending Unavailable Warner Almonte Referring Unavailable SYED HERNANDES~[id number] UNKNOWN Primary Care Unavailable Warner Almonte Admitting Unavailable Gage, Warner Attending Unavailable Gage, Warner Referring Unavailable SYED HERNANDES~[id number] UNKNOWN Primary Care Unavailable Syed Hernandes Unavailable CECILIO, DR STEINER Primary Care Unavailable REQUEST, DR [...] Unavailable WEST, DR GEOVANNY Nichole Consulting Unavailable Syed Hernandes DO Primary Care Provider Syed Hernandes DO Attending Provider Allergies Allergy ClassificationReported Allergen(s)Allergy TypeDate of OnsetReaction(s) Facility (1 source)Adhesive agentDrug allergy (disorder)59-21-9528Vsb [facility] Repository Medications Current Medications MedicationDrug Class(es)DatesSig (Normalized)Sig (Original)amLODIPine 5 mg oral tablet (6 sources)Dihydropyridine Calcium Channel BlockerStart: 84-62-9973savk 1 tablet by mouth every twenty-four hoursamLODIPine Besylate 5 MG 1 tablet Orally Once a day May, Activecetirizine hydrochloride 10 mg oral capsule (2 sources)Histamine-1 Receptor AntagonistStart: 96-37-7888rmjz 1 capsule by mouth once daily as neededCetirizine (Zyrtec) 10 mg capsule Active 10 MG PO Daily as needed November 09, 2024 12:00am Complies with drug therapytraMADol hydrochloride 50 mg oral tablet (5 sources)Opioid AgonistStart: 29-04-6979spgz 1 tablet by mouth every twenty- four hourstraMADol HCl 50 MG 1 tablet as needed Orally Once a day for 30 days Jun, Active Completed/Discontinued Medications MedicationDrug Class(es)DatesSig (Normalized)Sig (Original)amoxicillin 875 mg / clavulanate 125 mg oral tablet (4 sources)Penicillin-class AntibacterialStart: 01-07-2024 End: 44-40-8684lras 1 tablet by mouth twice dailyAmoxicillin-Pot Clavulanate 875-125 mg tablet Discontinued 1 TAB PO Twice daily January 07, 2024 12:00am February 16, 2024 11:55am Maxillary sinusitis Chronic maxillary sinusitisazithromycin 250 mg oral tablet (3 sources)Macrolide AntimicrobialStart: 44-33-7869Yruhkovrhoex 250 MG as directed Orally daily for 5 days Aug, Not-Takingcodeine phosphate 2 mg/ml / guaiFENesin 20 mg/ml oral solution (6 sources)Opioid AgonistStart: 22-23-9608dqbi 10 mL by mouth every six hours as needed for coughguaiFENesin-Codeine 100-10 MG/5ML 10 mL as needed Orally every 6 hours as needed for cough for 7 days May, Not-Takingdoxycycline monohydrate 100 mg oral tablet (8 sources)Tetracycline-class DrugStart: 02-16-2024 End: 30-80-3315vzaf 1 tablet by mouth twice dailyDoxycycline Monohydrate 100 mg tablet Discontinued 100 MG PO Twice daily February 1541:00am November 09, 2024 11:32am Maxillary sinusitis Chronic maxillary sinusitisStart: 65-69-3379knzr 1 capsule by mouth twice dailyDoxycycline Hyclate 100 MG 1 capsule Orally twice daily for 7 days May, Not-Taking Problems Active Problems Problem ClassificationProblemDateDocumented DateEpisodic/ChronicAcute bronchitis (10 sources)Acute infective bronchitis; Translations: [Acute bronchitis due to other specified organisms]Onset: 72-29-4183YkrcpmxqMofjer of breast (14 sources)Malignant neoplasm of unspecified site of unspecified female breast; Translations: [Malignant neoplasm of upper-outer quadrant of right female breast]Onset: 559384-06-1799LulnkodHmzxvly on above:Lumpectomy, radiation therapy, hormone therapyCancer of breast (7 sources)History of malignant neoplasm of breast; Translations: [Personal history of malignant neoplasm of breast]Onset: 33-83-9500KjkjjpctWrevcqrz mellitus with complications (3 sources)Type 2 diabetes mellitus; Translations: [Type 2 diabetes mellitus with hyperglycemia]ChronicDiabetes mellitus without complication (14 sources)Impaired fasting glucose; Translations: [Other abnormal glucose] Onset: 951258-95-7115HldantusGdrsoraek of lipid metabolism (14 sources)Hyperlipidemia; Translations: [Hyperlipidemia, unspecified]Onset: 485988-33-5694SygndvcUnwoqupva hypertension (20 sources)Essential hypertension; Translations: [Essential (primary) hypertension]Onset: 05-54-6148WejpibwMnafqlx and fatigue (2 sources)Other fatigue; Translations: [OTHER FATIGUE]Onset: 52-33-9883Vnmlydbg Menopausal disorders (2 sources)Menopausal and female climacteric states; Translations: [Menopause present]Onset: 59-07-2267YglcwutYzbnv hereditary and degenerative nervous system conditions (1 source)Essential tremor; Translations: [Essential tremor]ChronicOther hereditary and degenerative nervous system conditions (6 sources)Essential tremor; Translations: [Essential tremor]53-09-0794Eshurnx Other injuries and conditions due to external causes (1 source)History of falling; Translations: [History of falling]EpisodicOther injuries and conditions due to external causes (1 source)History of fall; Translations: [History of falling]EpisodicOther nutritional; endocrine; and metabolic disorders (7 sources)Body mass index 30+ - obesity; Translations: [Obesity, unspecified] ChronicOther nutritional; endocrine; and metabolic disorders (2 sources)Obesity, unspecified; Translations: [Obesity, unspecified]Chronic Other nutritional; endocrine; and metabolic disorders (2 sources)Simple obesity ; Translations: [Other obesity due to excess calories] Onset: 63-58-2169RlmityhMehon nutritional; endocrine; and metabolic disorders (1 source)Morbid (severe) obesity due to excess calories; Translations: [Morbid (severe) obesity due to excess calories]Onset: 61-31-5371NiyvuinBjqid nutritional; endocrine; and metabolic disorders (1 source)Other obesity due to excess caloriesChronicOther nutritional; endocrine; and metabolic disorders (1 source)Body mass index (BMI) 31.0-31.9, adultChronicOther nutritional; endocrine; and metabolic disorders (1 source)Obesity; Translations: [Obesity, unspecified]ChronicOther nutritional; endocrine; and metabolic disorders (1 source)Morbid obesity; Translations: [Morbid (severe) obesity due to excess calories]Onset: 45-76-1073UxphlgdJlsui skin disorders (5 sources)Papule of skin; Translations: [Other skin changes]EpisodicOther skin disorders (1 source)Other skin changesEpisodicOther skin disorders (4 sources)Nodule of subcutaneous tissue of left foot; Translations: [Localized swelling, mass and lump, left lower limb]12-19-0729PxczdoczHsqfs skin disorders (2 sources)Localized swelling, mass and lump, left lower limb; Translations: [Localized superficial swelling, mass, or lump]20-94-2696LhvidybpUyfxt upper respiratory disease (2 sources)Allergic rhinitis; Translations: [Allergic rhinitis, unspecified] Onset: 30-49-8971GozslojZhtji upper respiratory infections (4 sources)Maxillary sinusitis; Translations: [Chronic maxillary sinusitis] 58-12-3827ElyisqjUnfvk upper respiratory infections (6 sources)Acute sinusitis, unspecified; Translations: [Acute maxillary sinusitis]Onset: 04-62-5791OerweabgIfiolosmcft; intervertebral disc disorders; other back problems (11 sources)Lumbar spondylosis; Translations: [Spondylosis without myelopathy or radiculopathy, lumbar region]ChronicSprains and strains (2 sources)Strain of unspecified muscle(s) and tendon(s) at lower leg level, right leg, initial encounter; Translations: [Strain of muscle and/or tendon of lower leg]EpisodicUrinary tract infections (2 sources)Urinary tract infectious disease; Translations: [Urinary tract infection, site not specified]EpisodicViral infection (6 sources)Verruca plantaris; Translations: [Plantar wart]40-20-5325Bjuvradu Past or Other Problems Problem ClassificationProblemDateDocumented DateEpisodic/ChronicGastrointestinal hemorrhage (2 sources)Melena; Translations: [Melena]Onset: 40-53-1229ZuccntowEwfbdxltraofv symptoms and ill-defined conditions (2 sources)Dysuria; Translations: [Dysuria]Onset: 13-82-9881MxigyckoKipit circulatory disease (2 sources)Elevated blood-pressure reading without diagnosis of hypertension; Translations: [Elevated blood-pressure reading, without diagnosis of hypertension]Onset: 29-21-3328AbzrgtkwOespr connective tissue disease (2 sources)Ganglion cyst; Translations: [Ganglion, unspecified site]Onset: 93-91-9923SkdzblscFzqvg gastrointestinal disorders (2 sources)Constipation; Translations: [Constipation, unspecified]Onset: 02-72-5376FhbgqxzkVxezx lower respiratory disease (2 sources)Cough; Translations: [Cough, unspecified]Onset: 56-07-9194Xrmwdhhp Other non-traumatic joint disorders (2 sources)Arthralgia of the lower leg; Translations: [Pain in left knee]Onset: 24-57-0998DxduvnzzGkwnc screening for suspected conditions (not mental disorders or infectious disease) (8 sources)Encounter for screening mammogram for malignant neoplasm of breast; Translations: [Encounter for screening for malignant neoplasm of colon]Onset: 42-21-7411CrrtfqhhEnincjvyehi; intervertebral disc disorders; other back problems (2 sources)Dorsalgia, unspecified; Translations: [Backache]Onset: 07-16-2014 EpisodicViral infection (2 sources)COVID-19; Translations: [Disease caused by 2019-nCoV] Resolved: 11-05-2020 Results Test NameValueInterpretationReference RangeFacilityBasophils Auto (Bld) [#/Vol] Ordered By: Syed Hernandes on 91-08-2283Mcpvigtoi (Bld) [#/Vol]0.0 10 3/uL0.0-0.1 [facility] CenterBasophils/100 WBC Auto (Bld)Ordered By: Syed Hernandes on 80-41-7080Nckazugjb/100 WBC (Bld)0.4 %0.2-2.0[facility] CenterEosinophils/100 WBC Auto (Bld)Ordered By: Syed Hernandes on 48-49-7201Bjatkjektbo/100 WBC (Bld)1.9 %0.9-7.0[facility] Erythrocyte distribution width Auto (RBC) [Ratio]Ordered By: Syed Hernandes on 24-49-3033Hfvcjecyhui distribution width (RBC) [Ratio]12.4 %11.0-15.0[facility] CenterGlobulin Calc (S) [Mass/Vol]Ordered By: Syed Hernandes on 05-10-7161Yttyhxrn (S) [Mass/Vol]3.4 g/dLUniversity Hospitals Parma Medical Center Glomerular filtration rate (GFR) estimation in non- AmericanOrdered By: Syed Hernandes on 60-27-5506UDL/1.73 sq M.predicted among non-blacks MDRD (S/P/Bld) [Vol rate/Area]mL/min/{1.73_m2}>=60 mL/min/1.73m 2FGrant HospitalGlucose mean value [Mass/volume] in Blood Estimated from glycated hemoglobinOrdered By: Syed Hernandes on 13-25-5277Igwzkjq glucose Estimated from glycated hemoglobin (Bld) [Mass/Vol]131 mg/dLUniversity Hospitals Parma [facility] Center Hematocrit Auto (Bld) [Volume fraction]Ordered By: Syed Hernandes on 11-09-2024 Hematocrit (Bld) [Volume fraction]43.3 %36.0-48.0[facility] CenterHemoglobin A1c percentageOrdered By: Syed Hernandes 78-33-3000AyN0x (Bld) [Mass fraction]6.2 %4.5-6.2FGrant HospitalComment on above:ADA RECOMMENDED LIMIT 4.0 - 6.0ADA THERAPEUTIC TARGET < 7.0ACTION SUGGESTED> 7.0Hemoglobin [Mass/volume] in BloodOrdered By: Syed Hernandes on 27-91-0750Bbiccexsmc (Bld) [Mass/Vol]14.4 g/dL12.0-16.0[facility] CenterLaboratory - Chemistry and Chemistry - challengeOrdered By: Syed Hernandes 10-02-8451Yzhvbod [Mass/Vol]4.1 g/dL3.4-5.0[facility] Medical CenterALP [Catalytic activity/Vol]80 U/Y10-525ZwamwewblUniversity Hospitals Parma Medical CenterALT [Catalytic activity/Vol]24 U/T48-17DrrfxwlqyUniversity Hospitals Parma Medical Center AST [Catalytic activity/Vol]14 U/GHij48-24WgdtixebbUniversity Hospitals Parma Medical Center Bilirubin [Mass/Vol]0.7 mg/dL0.2-1.0[facility] CenterCalcium [Mass/Vol]9.3 mg/dL8.5-10.1FGrant HospitalChloride [Moles/Vol] 107 mmol/C57-438WfkjmvkmqUniversity Hospitals Parma Medical CenterCO2 [Moles/Vol]26.7 mmol/L 21.0-32.0[facility] CenterCreatinine [Mass/Vol]0.80 mg/dL 0.55-1.02[facility] CenterGFR/1.73 sq M.predicted MDRD (S/P/Bld) [Vol rate/Area]mL/min/{1.73_m2}>=60 mL/min/1.73m 2FGrant HospitalGlucose [Mass/Vol]129 mg/fVSuai10-792CgedqzaceUniversity Hospitals Parma Medical Center Potassium [Moles/Vol]4.1 mmol/L3.5-5.1FGrant HospitalProtein [Mass/Vol]7.5 g/dL6.4-8.2FSelect Medical Specialty Hospital - Cleveland-Fairhillodium [Moles/Vol]142 mmol/R390-241HlvrbjdtfUniversity Hospitals Parma Medical CenterTSH Qn2.433 m[IU]/L0.358-3.740 [facility] CenterUrea nitrogen [Mass/Vol]16.0 mg/dL7.0-18.0 [facility] CenterUrea nitrogen/Creatinine [Mass ratio]20.0 mg/mg [facility] CenterLaboratory - Hematology and Cell countsOrdered By: Syed Hernandes on 20-82-2238Stnqyggs granulocytes/100 WBC (Bld)0.2 %0.0-0.5 [facility] CenterLeukocytes [#/volume] corrected for nucleated erythrocytes in Blood by Automated counOrdered By: Syed Hernandes on 11-09-2024 WBC corrected for nucl RBC Auto (Bld) [#/Vol]4.8 10 3/uL4.0-11.0[facility] CenterLymphocytes Auto (Bld) [#/Vol]Ordered By: Syed Hernandes on 24-20-0945Szublibhqkv (Bld) [#/Vol]1.4 10 3/uL1.2-3.8[facility] CenterLymphocytes/100 WBC Auto (Bld)Ordered By: Syed Hernandes on 79-66-2854Ssbmrgqeijs/100 WBC (Bld)28.2 %20.5-60.0[facility] HospitalH Auto (RBC) [Entitic mass]Ordered By: Syed Hernandes on 69-39-8067INA (RBC) [Entitic mass]30.3 pg26.7-34.0[facility] Medical CenterMCHC Auto (RBC) [Mass/Vol]Ordered By: Syed Hernandes on 33-75-8139OHYB (RBC) [Mass/Vol]33.3 g/dL29.9-35.2FGrant HospitalMCV Auto (RBC) [Entitic vol] Ordered By: Syed Hernandes on 73-23-5297RQH (RBC) [Entitic vol]91.0 fL81.0-99.0 [facility] CenterMonocytes Auto (Bld) [#/Vol]Ordered By: Syed Hernandes on 23-86-4493Mmbvzlrbp (Bld) [#/Vol]0.3 10 3/uL0.3-0.8[facility] CenterMonocytes/100 WBC Auto (Bld)Ordered By: Syed Hernandes on 84-39-3366Uwznpgkab/100 WBC (Bld)7.1 %1.7-12.0[facility] Neutrophils Auto (Bld) [#/Vol]Ordered By: Syed Hernandes on 49-96-9113Mruiulwlezq (Bld) [#/Vol]3.0 10 3/uL1.4-6.5FGrant HospitalNeutrophils/100 WBC Auto (Bld)Ordered By: Syed Hernandes on 76-79-7727Nbpwgunebwv/100 WBC (Bld) 62.2 %43.0-75.0[facility] CenterNo Panel InformationOrdered By: Syed Hernandes on 67-88-8478Pdpkgesnmes # (Auto)0.1 10 3/uL0.0-0.7FGrant HospitalImmature Granulocyte # (Auto)0.01 10 3/uL0.00-0.03 [facility] CenterPlatelet mean volume Auto (Bld) [Entitic vol] Ordered By: Syed Hernandes on 04-97-0483Mgbvufxx mean volume (Bld) [Entitic vol] 10.1 fL9.5-13.5FGrant HospitalPlatelets Auto (Bld) [#/Vol] Ordered By: Syed Hernandes on 88-54-0452Cglxnsykw (Bld) [#/Vol]234 10 3/xQ282-811 [facility] CenterRBC Auto (Bld) [#/Vol]Ordered By: Syed Hernandes on 56-14-8545TLD (Bld) [#/Vol]4.76 10 6/uL4.20-5.40Middletown Hospitalerum or plasma albumin/globulin mass ratioOrdered By: Syed Hernandes on 58-40-6484Lrhzhui/Globulin [Mass ratio]1.2 {ratio}[facility]iddletown Hospitalerum or plasma anion gap determinationOrdered By: Syed Hernandes on 35-94-5648Lbucu gap [Moles/Vol]12.4 mmol/LFGrant Hospital GLYCOHEMOGLOBIN A1Con 98-33-9677JAC RECOMMENDATIONSEE [facility] Methodist HospitalComment on above:Result Comment: ADA RECOMMENDED LIMIT 4.0 - 6.0 ADA THERAPEUTIC TARGET < 7.0 ACTION SUGGESTED > 7.0Performed By: #### DATA1C #### [facility] [address] [address] [address] Joshua ArshadGlucose [Mass/Vol]151 mg/dLSelect Medical Specialty Hospital - YoungstownComment on above:Performed By: #### DATA1C #### [facility] [address] [address] [address] Joshua ArshadHbA1c (Bld) [Mass fraction]6.9 %Critically high4.5-6.2The [facility] CampusComment on above:Performed By: #### DATA1C #### [facility] [address] [address] [address] Joshua Boss AUTO DIFFon 75-75-2220TCRJ #0.0 103/ulNormal0.0-0.1The [facility] CampusComment on above:Performed By: #### CBC #### [facility] [address] [address] [address] Joshua ArshadBasophils/100 WBC (Bld)0.6 %Normal0.2-2.0The [facility] Comment on above:Performed By: #### CBC #### [facility] [address] [address] [address] Joshua Hamilton #0.1 103/ulNormal0.0-0.7The [facility] CampusComment on above: Performed By: #### CBC #### [facility] [address] [place] [address] Dr. Joshua Gleasonosinophils/100 WBC (Bld)2.3 %Normal0.9-7.0The [facility] Comment on above:Performed By: #### CBC #### [facility] [address] [place] [address] Dr. Joshua Gleasonrythrocyte distribution width (RBC) [Ratio]12.8 %Szwqgy82.0-15.0 The [facility] CampusComment on above:Performed By: #### CBC #### [facility] [address] [place] [address] Dr. Joshua ArshadHematocrit (Bld) [Volume fraction]43.3 %Amdvor13.0-48.0The [facility] CampusComment on above:Performed By: #### CBC #### [facility] [address] [address] [address] Joshua ArshadHemoglobin (Bld) [Mass/Vol]14.0 g/pAXvikyq72.0-16.0The [facility] CampusComment on above:Performed By: #### CBC #### [facility] [address] [place] [address] Dr. Joshua Dwyer #0.01 10e3/ulNormal0.00-0.03The [facility] CampusComment on above:Performed By: #### CBC #### [facility] [address] [address] [address] Joshua Dwyer %0.2 %Normal0.0-0.5The [facility] CampusComtr[facility] on above: Performed By: #### CBC #### [facility] [address] [address] [address] Joshua Hatch #1.6 103/ulNormal1.2-3.8The [facility] CampusComment on above:Performed By: #### CBC #### [facility] [address] [place] [address] Dr. Joshua Gonsalezhocytes/100 WBC (Bld)34.2 %Duspny30.5-60.0The [facility] CampusComtrinity [facility] on above:Performed By: #### CBC #### [facility] [address] [place] [address] Dr. Joshua EspositoUAL DIFF REQNONormalThe [facility] CampusComment on above: Performed By: #### CBC #### [facility] [address] [place] [address] Dr. Joshua Iraheta (RBC) [Entitic mass]29.5 idEpjqaq77.7-34.0The [facility] on above:Performed By: #### CBC #### [facility] [address] [place] [address] Dr. Joshua Iraheta (RBC) [Mass/Vol]32.3 g/xRQxausj15.9-35.2The [facility] CampusComtr[facility] on above:Performed By: #### CBC #### [facility] [address] [place] [address] Dr. Joshua Iraheta (RBC) [Entitic vol]91.4 fHBxlapr86.0-99.0The [facility] on above:Performed By: #### CBC #### [facility] [address] [place] [address] Dr. Joshua Lucero #0.3 103/ulNormal0.3-0.8The [facility] HospitalComment on above:Performed By: #### CBC #### [facility] [address] [address] [address] Joshua Clarkocytes/100 WBC (Bld)6.3 %Normal1.7-12.0The [facility] on above:Performed By: #### CBC #### [facility] [address] [place] [address] Dr. Joshua RosaUT #2.7 103/ulNormal1.4-6.5The [facility] CampusComment on above:Performed By: #### CBC #### [facility] [address] [place] [address] Dr. Joshua Rosautrophils/100 WBC (Bld)56.4 %Qzurlq21.0-75.0The [facility] CampusComment on above:Performed By: #### CBC #### [facility] [address] [place] [address] Dr. Joshua ArshadPlatelet mean volume (Bld) [Entitic vol]10.8 fLNormal9.5-13.5The [facility] Systemment on above:Performed By: #### CBC #### [facility] [address] [place] [address] Dr. Joshua ArshadPLT209 103/qgSdnnkn103-701Ocq [facility] Systemment on above: Performed By: #### CBC #### [facility] [address] [place] [address] Dr. Joshua ArshadRBC4.74 106/ulNormal4.20-5.40The [facility] Systemment on above:Performed By: #### CBC #### [facility] [address] [place] [address] Dr. Joshua ArshadWBC4.7 103/ulNormal4.0-11.0The [facility] on above: Performed By: #### CBC #### [facility] [address] [place] [address] Dr. Joshua ArshadPROF CHEM 8 (BAS METB)on 28-07-6943Sengg gap [Moles/Vol]14.0 mmol/LNormalThe [facility] CampusComment on above:Performed By: #### TSH, BMP #### [facility] [address] [address] [address] Joshua ArshadCalcium [Mass/Vol]9.5 mg/dLNormal8.5-10.1[facility] Comment on above:Performed By: #### TSH, BMP #### [facility] [address] [address] [address] Joshua ArshadChloride [Moles/Vol]103 mmol/GMuaujb87-189Nto [facility] Comment on above:Performed By: #### TSH, BMP #### [facility] [address] [place] [address] Dr. Joshua ArshadCO2 [Moles/Vol]27.1 mmol/FTkpfuw65.0-32.0[facility] Comment on above:Performed By: #### TSH, BMP #### [facility] [address] [place] [address] Dr. Joshua ArshadCreatinine [Mass/Vol]0.75 mg/dLNormal0.55-1.02The [facility] CampusComment on above:Performed By: #### TSH, BMP #### [facility] [address] [place] [address] Dr. Joshua GleasonGFR-AF MALTESE>60Normal>=60The [facility] CampusComment on above:Performed By: #### TSH, BMP #### [facility] [address] [place] [address] Dr. Joshua GleasonGFR-NON AF MALTESE>60Normal>=60The [facility] CampusComment on above:Performed By: #### TSH, BMP #### [facility] [address] [place] [address] Dr. Joshua ArshadGlucose [Mass/Vol]134 mg/dLCritically efqm56-851Zmc [facility] CampusComment on above:Performed By: #### TSH, BMP #### [facility] [address] [place] [address] Dr. Joshua ArshadPotassium [Moles/Vol]4.1 mmol/LNormal3.5-5.1[facility] Comment on above:Performed By: #### TSH, BMP #### [facility] [address] [address] [address] Joshua Grossum [Moles/Vol]140 mmol/XIurmqe190-684Uge [facility] Comment on above:Performed By: #### TSH, BMP #### [facility] [address] [address] [address] Joshua Chun nitrogen [Mass/Vol]10.0 mg/dLNormal7.0-18.0The [facility] CampusComment on above:Performed By: #### TSH, BMP #### [facility] [address] [place] [address] Dr. Joshua Chun nitrogen/Creatinine [Mass ratio]13.3 mg/mgNormalThe [facility] CampusComment on above:Performed By: #### TSH, BMP #### [facility] [address] [place] [address] Dr. Joshua Lyle 22-52-8787FCZ9.694 uIU/mLNormal0.358-3.740The [facility] CampusComment on above:Performed By: #### TSH, BMP #### [facility] [address] [place] [address] Dr. Joshua ArshadMG MAMM SCREEN 3D ALEXIA CADon 09-95-5653NP MAMM SCREEN 3D ALEXIA CAD Patient: MARIA E DARDEN Exam Date: 01/05/2022 : 1945 Gender:F Ordering : DR SYED HERNANDES D.O. 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 on 23-27-8699Xsuikv Summary.CODING DATE: 05/06/2018 FINAL [facility] STATUS: Home (Routine DC) PAYOR: Medicare APC DESCRIPTION 5481 Laser Eye Procedures ADMIT DX: REASON FOR VISIT DX: H26.491 Other secondary cataract, right eye FINAL DX: PRINCIPAL: H26.491 Other secondary cataract, right eye SECONDARY: PYMT PROC APC STAT DESCRIPTION DOCTOR NAME DATE [id number] 2374 T Discission of secondary Warner Al[place]te DO [...] By: Barbara Delaney Date Saved: 05/06/2018 08:06 [facility] Vital Signs Date TimeVital SignValuePerforming XckqafynzWxlbcgnp86-39-9900 11:38-0400Body oyqemz838.1 cmBenjamin Ball DO Work Phone: [phone]08-28-2025 11:38-0400 Body mass index (BMI) [Ratio]30.6 kg/g4Tczbmivg Ball DO Work Phone: [phone]08-28-2025 11:38-0400 Body vihano09.46 kgBenjamin Ball DO Work Phone: [phone]08-28-2025 11:38-0400 Diastolic blood dwveyfzm94 mm[Hg]Syed Ball DO Work Phone: [phone]08-28-2025 11:38-0400 Heart rate66 /minBenjamin Ball DO Work Phone: [phone]08-28-2025 11:38-0400 Respiratory rate12 /minBenjamin Ball DO Work Phone: [phone] [place], [place] 9678508-28-2025 11:38-0400 Systolic blood jqrexzve431 mm[Hg]Syed Ball DO Work Phone: [facility]10-25-2024 11:21-0400 Body sjsynd937.1 cmUniversity [facility]als [facility]10-25-2024 11:21-0400Body mass index (BMI) [Ratio]32.1 kg/a7UmqyykblqUniversity [facility]als [facility]10-25-2024 11:21-0400Body wflxdioucpm21.9 [degF][facility]10-25-2024 11:21-0400Body ivzanx90.71 kgUniversity [facility]als [facility]10-25-2024 11:21-0400Diastolic blood cbabzpdc85 mm[Hg][facility] 01-07-2024 11:21-0400Heart rate67 /[facility] 01-07-2024 11:21-5279EzJ6% (BldA) [Mass fraction]96 %[facility]10-25-2024 11:21-0400Systolic blood gknyoird562 mm[Hg][facility]08-08-2024 11:48-0400Body hlhads596.1 cmUniversity [facility]08-08-2024 11:48-0400Body mass index (BMI) [Ratio]31.9 kg/h8MylippikyUniversity Hospitals [facility]ma [facility] Center08-08-2024 11:48-0400Body fkmbye17.08 kgUniversity [facility]als [facility]08-08-2024 11:48-0400Diastolic blood lzwipguj92 mm[Hg] [facility]08-08-2024 11:48-0400Heart rate61 /[facility]08-08-2024 11:48-0400Respiratory rate16 /[facility]08-08-2024 11:48-8150GzE4% (BldA) [Mass fraction]97 % [facility]08-08-2024 11:48-0400Systolic blood efqqdqfe905 mm[Hg][facility]08-07-2023 13:30-0400Body mkubdx266.1 cm Syed Ball Other [employer] Other 08-07-2023 13:30-0400Body mass index (BMI) [Ratio] 31.21 kg/j9Hfqxbenc Ball Other [employer] Other 08-07-2023 13:30-0400Body .1 kgBenjamin Ball Other [facility] [employer] Other 08-07-2023 13:30-0400Diastolic blood vuibldgk05 mm[Hg] Syed Ball Other [facility] [employer] Other 08-07-2023 13:30-0400Respiratory rate12 /minBenjamin Ball Other [facility] [employer] Other 08-07-2023 13:30-0400Systolic blood wtraftjy383 mm[Hg] Syed Ball Other [facility] [employer] Other 04-20-2023 10:15-0400Body rqzali949.1 cmBenjamin Ball Other [facility] [employer] Other 04-20-2023 10:15-0400Body mass index (BMI) [Ratio] 34.78 kg/v8Gmyhrzox Ball Other [facility] [employer] Other 04-20-2023 10:15-0400Body smkiym13.8 kgBenjamin Ball Other [facility] [employer] Other 04-20-2023 10:15-0400Diastolic blood qbppzonx57 mm[Hg] Syed Ball Other [facility] [employer] Other 04-20-2023 10:15-0400Respiratory rate16 /minBenjamin Ball Other [facility] [employer] Other 04-20-2023 10:15-0400Systolic blood tflgbeuc526 mm[Hg] Syed Ball Other [facility] [employer] Other Encounters Encounter DateEncounter TypeCare ProviderFacilityStart: 01-08-2025 End: 90-34-2601fjxqxmwxlbDyoifcwi Ball DO Work Phone: [facility]: 01-08[facility]2025 End: 91-38-5803Iwdezsx encounter procedureBenjadenice Hernandes DO-[facility] Work Phone: Start: 11-09-2024 End: 20-39-3042danjdagabgSmcfeihz Ball DO Work Phone: [facility] Work Phone: Start: 11-09-2024 End: 80-01-0782Ofcxjeq encounter procedureBenjamin Cecilio DO-[facility] Work Phone: Start: 01-13-2024 End: 25-11-7117gdyymsvnivSypllkwasSt. [facility] Hospital Work Phone: Start: 01-13-2024 End: 06-83-7924Ldghccs encounter procedureFirelands [facility]ician [facility] Work Phone: Start: 01-07-2024 End: 98-49-2246wczbwosvliFdajicofhSt. Elizabeth Hospital Work Phone: Start: 01-07-2024 End: 84-92-0182Zeingox encounter procedureFirelands Physician [facility] Work Phone: Start: 10-21-2023 End: 09-43-8012hwrpkjjrthSbviykpzlSt. [facility] Hospital Work Phone: Start: 10-21-2023 End: 85-00-4317Oquznql encounter procedureFirelands Physician Group-[facility] Work Phone: Start: 10-19-2022 End: 32-80-0323pqtqbceyamBavdvifg Cecilio Other [place] [employer] Other Start: 98-73-9066Hqrljcl encounter procedureBenjamin BallFPG [facility] ClinicStart: 18-99-5879Yrrcdveil encounterBenjamin BallFPG [facility] ClinicStart: 08-17-2022 End: 40-42-1694jubrhvoswbEtrqbkjc Ball Other [employer] Other Start: 73-78-6593Fxkhwd outpatient visit 15 minutes Syed BallDAVIDG [facility] ClinicStart: 07-15-2022 End: 47-95-3116nyaikukqmxVZ SYED BALLFacility:L8Jmtac: 07-09-2022 End: 65-06-1212fozlmewkjrEmgbbwop Ball Other [employer] Other Start: 14-66-3911Vgdsaqniq encounterBenjamin BallFPG [facility] ClinicStart: 07-08-2022 End: 34-76-6129nawyljxcnsHV SYED BALLFacility:H2Hxckc: 07-02-2022 End: 08-50-2908nrtcnvouerMlfpfbiq Ball Other [employer] Other Start: 27-97-9810Mnplrx outpatient visit 15 minutes Syed FryG [facility] ClinicStart: 06-12-2022 End: 63-83-5414tbyadkioxqUhtrwuau Ball Other [employer] Other Start: 27-81-1807Mtyisi outpatient visit 15 minutes Syed AngG [facility] ClinicStart: 01-05-2022 End: 42-61-6900nvmfpedvqoZN SYED BALLFacility:J9Xzpej: 51-05-9493Utfos health examinationBenjamin Ball Other [employer] Other Start: 05-10-2018 End: 84-93-4547Zcedwsy encounter procedureJorupa AlmonteFacility:FTMCStart: 05-03-2018 End: 31-37-7027Wvmbkqk encounter procedureJorupa AlmonteFacility:[facility] Procedures DateProcedureProcedure DetailPerforming ClinicianStart: 97-72-1719Lbxcmnfrb for malignant neoplasm of colonSyed Hernandes Other Depression screeningSyed Hernandes Other Plan of Treatment DateCare ActivityDetailAuthorComprehensive metabolic 1999 panel - Serum or PlasmaUniversity Hospitals Parma Medical CenterComprehensive metabolic 1999 panel - Serum or PlasmaEd [facility] Immunizations Immunization DateImmunizationNotesCare HshvcmfsNevaekms33-01-6129gafwvlcra, high dose seasonal, preservative-freeSyed Hernandes DO Work Phone: [facility]10-31-2024influenza, high dose seasonal, preservative-freeUniversity Hospitals Parma Medical Center09-20-2018 influenza virus vaccine, split virus (incl. purified surface antigen)Syed Hernandes Other [employer] Other [id number] virus vaccine, unspecified formulationUniversity Hospitals [facility] Center08-21-2017pneumococcal conjugate vaccine, 13 valentBenflorina Hernandes Other [facility]10-12-2016influenza virus vaccine, split virus (incl. purified surface antigen)Syed Hernandes Other [employer] Other [id number] virus vaccine, unspecified formulationUniversity Hospitals Parma Medical Center11-30-2001pneumococcal polysaccharide vaccine, 23 valentBenjadenice Hernandes Other [facility] Payers DatePayer CategoryPayerPolicy [id number] [id number] [id number] Social History DateTypeDetailFacilitySex Assigned At [employer]Tw[employer] Other Start: 78-49-8178Udo Assigned At [facility] Centertart: 57-90-2444Urovezr smoking status NHISNever smoked tobacco (finding)[facility] (finding)[facility] Clinical Notes 06-12-2022 to 11-09-2024 Note Date & XndeBzexLgabijff99-99-6265 Evaluation note* Diagnosis Onset Date Resolution Status Admit Date Breast cancer acuteAugust 2024 11:30amHypercholesterolemiaacuteAugust 2024 11:30am HypertensionacuteAugust 2024 11:30amIFG (impaired fasting glucose)acute November 09, 2024 11:30amMedicare annual wellness visit, subsequentnoneactive November 09, 2024 11:30am [facility] Work Phone: [phone] Evaluation note* Encounter Date Diagnosis Assessment Notes Treatment Notes Treatment Clinical Notes Oct, Medicare annual wellness visit, subsequent [...] and exercise. Reviewed age-appropriate preventive testing recommended. Oct,Type 2 diabetes mellitus with hyperglycemia, without long-term current use of insulin (ICD-10 - E11.65)This patient is following a comprehensive diabetic treatment [...] is following a heatlhy, low carb diet Oct,rimary hypertension (ICD-10 - I10)This patient is instructed to consume a healthy, low-fat, low-salt diet. They are also encouraged to continue exercise to achieve/maintain a normal BMI. Oct,Other obesity due to excess calories (ICD-10 - E66.09)This patient has been instructed on a low-fat, high-fiber diet. They are instructed to reduce calories, portion sizes and snacks. It is recommended that they exercise for 30 minutes, 3-5 times weekly. Goal is BMI < 30 Oct,ody mass index [BMI] 31.0-31.9, adult (ICD-10 - Z68.31) Oct,Screening mammogram for high-risk patient (ICD-10 - Z12.31)Hx of breast cancer No s/s recurrence. f/u Oncology [employer] Other 06-05-2023 Evaluation note* Encounter Date Diagnosis Assessment Notes Treatment Notes Treatment Clinical Notes Aug, Acute bronchitis due to other sp ecified organisms (ICD-10 - J20.8) Instructed to use Robitussin or Mucinex for cough, saline or Flonase NS for congestion, Tylenol forpain and fever. [employer] Other 04-20-2023 Evaluation note* Encounter Date Diagnosis Assessment Notes Treatment Notes Treatment Clinical Notes Jun, Primary hypertension (ICD-10 - I 10) This patient is instructed to consume a healthy, low-fat, low-salt diet. They are also encouraged to continue exercise to achieve/maintain a normal BMI. Jun,Obesity (BMI 30-39.9) (ICD-10 - E66.9)This patient has been instructed on a low-fat, high-fiber diet. They are instructed to reduce calori es, portion sizes and snacks. It is recommended that they exercise for 30 minutes, 3-5 times weekly. Jun,apule of skin (ICD-10 - R23.8)Cryo/thaw x 3 treatment Removed due to frequent episodes of bleeding from this inflamed, irritated papule Jun,Hx of breast cancer (ICD-10 - Z85.3) Jun,Fatigue, unspecified type (ICD-10 - R53.83) Jun,Lumbar spondylosis (ICD-10 - M47.816) [employer] Other 03-31-2023 Evaluation note* Encounter Date Diagnosis Assessment Notes Treatment Notes Treatment Clinical Notes May, Acute bronchitis due to other sp ecified organisms (ICD-10 - J20.8) Instructed to use Robitussin or Mucinex for cough, saline or Flonase NS for congestion, Tylenol forpain and fever. May,rimary hypertension (ICD-10 - I10)This patient is instructed to consume a healthy, low-fat, low-salt diet. They are also encouraged to continue exercise to achieve/maintain a normal BMI. Avoid decongestants [employer] Other Evaluation noteNo InformationNort [employer] Other Evaluation note* Diagnosis Onset Date Resolution Status Breast cancer acuteHypercholesterolemiaacuteHypertensionacuteIFG (impaired fasting glucose) acuteMedicare annual wellness visit, [facility]non[facility] Work Phone: Evaluation note* Diagnosis Onset Date Resolution Status Breast cancer acuteHypercholesterolemiaacuteHypertensionacuteIFG (impaired fasting glucose) acutePlantar wart of right footacuteSubcutaneous nodule of left footacute Medicare annual wellness visit, subsequentnon[facility] Work Phone: Evaluation note* Diagnosis Onset Date Resolution Status Breast cancer acuteHypercholesterolemiaacuteHypertensionacuteIFG (impaired fasting glucose) acutePlantar wart of right footacuteSubcutaneous nodule of left footacute Medicare annual wellness visit, subsequentnoneactiveMaxillary sinusitisacute [facility] Work Phone: Evaluation note* Diagnosis Onset Date Resolution Status Admit Date Breast cancer acuteAugust 2024 11:30amHypercholesterolemiaacuteAugust 2024 11:30am HypertensionacuteAugust 2024 11:30amIFG (impaired fasting glucose)acute November 09, 2024 11:30amMedicare annual wellness visit, subsequentnoneactive November 09, 2024 11:30am [facility] Work Phone: History general Narrative - Reported* Type Description Date Medical History essential tremor Medical HistoryhyperlipidemiaMedical HistoryhypertensionMedical Historyimpaired fasting glucoseMedical Historymalignant neoplasm of UOQ of right breastMedical HistoryobesitySurgical Historycolonoscopy/2017Surgical Historyright lumpectomy w/ LN czwczszost62/2015 [facility] Other History general Narrative - Reported* Type Description Date Medical History essential tremor Medical HistoryhyperlipidemiaMedical HistoryhypertensionMedical Historyimpaired fasting glucoseMedical Historymalignant neoplasm of UOQ of right breastMedical HistoryobesitySurgical Historycolonoscopy/2016Surgical Historyright lumpectomy w/ LN mvfpoaxqib36/2015Hospitalization HistorySEE SURGICAL HX [facility] Other Reason for referral (narrative)No reason for referral information availableSelect Medical [facility] Work Phone: Summary Purpose Family History Relationship Condition Age at Onset Recorded Date/T laura father Heart disease Unknown Diabetes mellitusUnknown Advance Directives Advance Directive Response Recorded Date/ Time Advance Directives No October 20 11:38am Chief Complaint and Reason for Visit Chief Complaint Rt foot pain Reason for Visit Breast cancer Hypercholesterolemia Hypertension IFG (impaired fasting glucose) Medicare annual wellness visit, subsequent Chief Complaint Rt foot pain sinus infectionReason for VisitBreast cancer Hypercholesterolemia Hypertension IFG (impaired fasting glucose) Plantar wart of right foot Subcutaneous nodule of left foot Medicare annual wellness visit, subsequent Chief Complaint Rt foot pain sinus infection flu shotReason for VisitBreast cancer Hypercholesterolemia Hypertension IFG (impaired fasting glucose) Plantar wart of right foot Subcutaneous nodule of left foot Medicare annual wellness visit, subsequent Maxillary sinusitis Chief Complaint Admit Date wellness November 09, 2024 11 :30am Reason for Visit Admit Date Breast cancer November 09, 2024 11 :30am Hypercholesterolemia November 09, 2024 1 1:30am Hypertension November 09, 2024 11 :30am IFG (impaired fasting glucose) November 092024 11:30am Medicare annual wellness visit, subseque nt November 09, 2024 11:30am Additional Source Comments INFORMATION SOURCE (unrecogn ized section and content) DATE CREATED AUTHOR 07/18/2018 [facility] DATE CREATED AUTHOR AUTHOR'S ORGANIZ ATION 07/16/2022 [facility] REASON FOR VISIT (unrecogniz ed section and content) Sinuses/Congestion [phone] on Chestlab resultsSore Wheijc-[phone] work needed Care Teams (unrecognized sec tion and content) Team Status: Active Member Role Status Dates Syed Hernandes DO Primary Care Provider Active Team Status: Inactive Member Role Status Radha Hernandes DO Primary Care Provide r, Attending Provider Active Start: October 21, 2023 End: October 21, 2023 Team Status: Inactive Member Role Status Dates Syed Hernandes DO Primary Care Provider Active Start: January 07, 2024 End: January 07, 2024Christiane Connor APRN BIOLOGICAL SCIENCE TECHNICIAN FISH-CAttending ProviderActive Start: January 07, 2024 End: January 07, 2024 Team Status: Inactive Member Role Status Dates Syed Hernandes DO Primary Care Provide r, Attending Provider Active Start: January 13, 2024 End: January 13, 2024 Team Status: Inactive Member Role Status Dates Syed Hernandes DO Primary Care Provider Active Start: November 09, 2024 End: November 09marla Hernandes DOAttjoshua ProviderActiveStart: November 09, 2024 End: November 09, 2024 Team Status: Active Member Role/Relationship Status Dates Syed Hernandes DO Primary Care Provider Active Team Status: Inactive Member Role/Relationship Status Dates Syed Hernandes DO Primary Care Provider Active Start: November 09, 2024 End: November 09madysonflorina Hernandes DOAttjoshua ProviderActiveStart: November 09, 2024 End: November 09, 2024 Team Status: Inactive Member Role/Relationship Status Dates Syed Hernandes DO Primary Care Provider Active Start: January 08, 2025 End: January 08madysonflorina Hernandes DOAttjoshua ProviderActiveStart: January 08, 2025 End: January 08, 2025 Goals (unrecognized section and content) Goals may [...] BE BASED ON THE PRIMARY CLINICAL RECORDS. [facility] [employer]. provides no warranty or guarantee of the accuracy or completeness of information in this document.
== END 2025-01-23 16:02 | disposition home or self-care (01) ==
LOC: MAMMO 16:02
PROVIDERS: PCP Internal Medicine; Visit Provider Internal Medicine
DX: Z12.31 Encounter for screening mammogram for malignant neoplasm of breast (principal); Z85.3 Personal history of malignant neoplasm of breast
CPT/HCPCS: 77063; 77067